=== PATIENT | male | born 1940 | race Caucasian/White ===

== ENCOUNTER → 2019-07-04 08:48 | Outpatient (CLI) | payer OTHER, SELFPAY ==
[2019-07-04 09:42] LABS: Add Manual Diff / Slide Review NO; Alanine Aminotransferase 25 IU/L (<50); Albumin 4.4 g/dL (3.5-5.0); Albumin Globulin Ratio 1.6 (1.0-2.8); Alkaline Phosphatase 55 U/L (38-126); Aspartate Aminotransferase 28 IU/L (17-59); Basophils Absolute Auto 0 /uL (0-100); Basophils Percent Auto 0.5 % (0-2); Blood Urea Nitrogen 28 mg/dL (9-20); Calcium 9.5 mg/dL (8.4-10.2); Carbon Dioxide 31 mmol/L (22-32); Chloride 103 mmol/L (98-107); Cholesterol 191 mg/dL (140-199); Eosinophils Absolute Auto 100 /uL (0-450); Eosinophils Percent Auto 1.6 % (2-4); Estimated Glomerular Filt Rate > 60.0 mL/min (>60); Globulin 2.8 g/dL (1.7-4.1); Glucose 114 mg/dL (80-110); HDL Cholesterol 66 mg/dL (40-60); HEMOLYSIS < 15 (0-50); Hematocrit 43.7 % (41-53); Hemoglobin 15.2 g/dL (13.5-17.5); LDL Cholesterol Calculated 100 mg/dL (<100); Lymphocytes Absolute Auto 1800 /uL (1100-4500); Mean Corpuscular HGB Conc 34.8 % (30-36); Mean Corpuscular Hemoglobin 33.4 PG (26-34); Mean Corpuscular Volume 96.1 fL (80-100); Monocytes Absolute Auto 400 /uL (0-900); Monocytes Percent Auto 8.4 % (3-14); Neutrophils Absolute Auto 2200 /uL (1500-7000); Neutrophils Percent Auto 48.5 % (50-75); Platelet Count 224 X10^3/uL (150-400); Potassium 3.9 mmol/L (3.4-5.1); Red Blood Cell Count 4.55 X10^6/uL (4.5-5.9); Red Cell Distribution Width 13.6 % (11.6-14.8); Sodium 139 mmol/L (137-145); Total Protein 7.2 g/dL (6.3-8.2); Triglycerides 126 mg/dL (35-150); White Blood Cell Count 4.4 X10^3/uL (4.5-11.0)
[2019-07-04 10:30] LABS: Thyroid Stimulating Hormone 0.91 uIU/mL (0.47-4.68)
== END ==
PROVIDERS: PCP Family Medicine; Visit Provider Family Medicine
DX: E78.5 Hyperlipidemia, unspecified (principal); I10 Essential (primary) hypertension
CPT/HCPCS: 36415; 80053; 80061; 84443; 85025

== ENCOUNTER → 2020-10-05 07:56 | Outpatient (CLI) | payer MEDICARE, SELFPAY ==
[2020-10-05 09:01] LABS: Add Manual Diff / Slide Review NO; Basophils Absolute Auto 0 /uL (0-100); Basophils Percent Auto 0.4 % (0-2); Eosinophils Absolute Auto 100 /uL (0-450); Eosinophils Percent Auto 2.6 % (2-4); Hematocrit 43.4 % (41-53); Hemoglobin 14.7 g/dL (13.5-17.5); Lymphocytes Absolute Auto 2100 /uL (1100-4500); Lymphocytes Percent Auto 43.1 % (25-40); Mean Corpuscular HGB Conc 33.9 % (30-36); Mean Corpuscular Hemoglobin 32.6 PG (26-34); Mean Corpuscular Volume 96.3 fL (80-100); Monocytes Absolute Auto 400 /uL (0-900); Neutrophils Absolute Auto 2300 /uL (1500-7000); Neutrophils Percent Auto 45.9 % (50-75); Platelet Count 296 X10^3/uL (150-400); Red Cell Distribution Width 13.3 % (11.6-14.8)
[2020-10-05 09:23] LABS: Alanine Aminotransferase 36 IU/L (<50); Albumin 4.2 g/dL (3.5-5.0); Albumin Globulin Ratio 1.3 (1.0-2.8); Alkaline Phosphatase 59 U/L (38-126); Aspartate Aminotransferase 32 IU/L (17-59); BUN Creatinine Ratio 35.9 (6-22); Bilirubin Total 0.5 mg/dL (0.2-1.3); Blood Urea Nitrogen 28 mg/dL (9-20); Calcium 9.7 mg/dL (8.4-10.2); Carbon Dioxide 31 mmol/L (22-32); Chloride 100 mmol/L (98-107); Cholesterol 200 mg/dL (140-199); Estimated Glomerular Filt Rate > 60.0 mL/min (>60); Globulin 3.2 g/dL (1.7-4.1); Glucose 107 mg/dL (80-110); HDL Cholesterol 63 mg/dL (40-60); HEMOLYSIS < 15 (0-50); LDL Cholesterol Calculated 112 mg/dL (<100); Sodium 137 mmol/L (137-145); Total Protein 7.4 g/dL (6.3-8.2); Triglycerides 124 mg/dL (35-150)
== END ==
PROVIDERS: PCP Family Medicine; Referring Provider Family Medicine; Visit Provider Family Medicine
DX: I10 Essential (primary) hypertension (principal); E78.5 Hyperlipidemia, unspecified; D72.819 Decreased white blood cell count, unspecified
CPT/HCPCS: 36415; 80053; 80061; 85025

== ENCOUNTER 2021-06-30 08:33 | Emergency (ER) | payer MEDICARE, SELFPAY ==
--- NOTE | 2021-06-30 08:49 | ED_ITS ---
HPI - Sepsis General Chief Complaint: Urogenital-Male Evaluation Narrative: 80M former smoker with history of [place], HTN, and hyperlipidemia presents from the [facility] for sepsis workup. He was in his normal state of health until a few days ago when he started having urinary complaints such as frequency and urgency and had some twinges Of pain in his r flank. This morning he started have a fever and shaking chills and felt if anything even short of breath. He denies any runny nose, sore throat or cough. He has no chest pain. He has no nausea or vomiting. He has no abdominal pain or change of bowel habits such as constipation or diarrhea. He denies any numbness, tingling or weakness. He has no pain with bowel movements. He went to the walk-in clinic and after evaluation was sent here for further workup. Review of Systems Review of Systems Narrative: GENERAL: See HPI HEENT: Denies sinus pain, ear pain, sore throat, difficulty swallowing, dizziness. RESPIRATORY: Denies cough, wheezing, hemoptysis, sputum. [place] SOB earlier. CARDIOVASCULAR: Denies chest pain, palpitations, orthopnea, edema, GASTROINTESTINAL: Denies nausea, vomiting, abdominal pain, diarrhea, constipatio n, melena. : See HPI MUSCULOSKELETAL: denies weakness, joint pain, or bony pain SKIN: Denies rash, skin lesions, or other NEUROLOGIC: Denies weakness, headache, numbness, change in speech, confusion, seizures, incoordination. PSYCHIATRIC: No concerning psychosocial issues. 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 Diverticular disease (~2016) Insomnia Obesity (BMI 30-39.9) Obstructive sleep apnea, adult (~2003) Osteoarthritis Rheumatic fever (~1948) Sleep apnea (~2005) Surgical History Anesthesia Cataracts, bilateral (~2017) History of back surgery History of hernia surgery History of knee replacement History of removal of cyst Kidney stones Family History Father Cancer Brother Cancer Diabetes mellitus Sister MDS (myelodysplastic syndrome) Social History marital status: number of children: 3 household members: spouse lives independently: Yes education level: high school occupational status: employed and other Smoking Status: Former smoker alcohol intake: current substance use type: does not use Smoking Status: Former smoker Exam Narrative Exam Narrative: GENERAL: [80] year old patient appears stated age. Well-developed patient, in mild distress. HEAD: Atraumatic. Normocephalic. EYES: Pupils equal round and reactive. Extraocular motions intact. No scleral icterus. No injection or drainage. ENT: Nose without bleeding, purulent drainage. Throat without erythema, tonsillar hypertrophy or exudate. Airway patent. NECK: Trachea midline. Non tender CARDIOVASCULAR:Tachycardic but regular, no murmurs, Crackles or rubs RESPIRATORY: Clear to auscultation. Breath sounds equal bilaterally. No wheezes, rales, or rhonchi. GASTROINTESTINAL: Abdomen soft, non-tender, nondistended. EXTREMITIES: No edema or joint tenderness. BACK: Nontender without deformity or crepitance. No flank tenderness. NEURO: AOx3. SKIN: No rash or erythema of visible areas Initial Vital Signs Initial Vital Signs: Vital Signs Temperature 99.5 F 06/30/21 09:10 Pulse Rate 125 H 06/30/21 09:10 Respiratory Rate 18 06/30/21 09:10 Blood Pressure 155/76 H 06/30/21 09:10 Pulse Oximetry 98 06/30/21 09:10 Course Orders Ordered: ED Orders 06/30/21 09:00 Complete Blood Count AUTO DIFF Stat Comprehensive Metabolic Panel Stat D Dimer Stat Lactate (Lactic Acid) Stat 06/30/21 09:17 Blood Culture Stat 06/30/21 09:40 Urine Culture Stat Urine Microscopic Stat 06/30/21 09:51 COVID19 -Nasal swab/Pre-Proc Stat 06/30/21 09:56 Chest [XR chest 1V] Stat Discontinued Medications Sodium Chloride (Normal Saline 0.9%) 1,000 mls @ 1,000 mls/hr IV BOLUS ONE Stop: 06/30/21 09:40 Last Infusion: 06/30/21 10:27 Dose: 0 mls/hr Documented by: Admin: 06/30/21 09:08 Dose: 1,000 mls/hr Documented by: MARIANNA Ceftriaxone Sodium 2,000 mg/ (Sodium Chloride) 100 mls @ 200 mls/hr IV NOW ONE Stop: 06/30/21 08:45 Last Infusion: 06/30/21 09:43 Dose: 0 mls/hr Documented by: Admin: 06/30/21 09:08 Dose: 200 mls/hr Documented by: MARIANNA Ketorolac Tromethamine (Ketorolac 30 Mg/Ml Vial) 15 mg IV NOW ONE Stop: 06/30/21 08:45 Last Admin: 06/30/21 09:07 Dose: 15 mg Documented by: MARIANNA Vital Signs Vital signs: Vital Signs - 8 hr 06/30/21 09:10 06/30/21 09:30 06/30/21 10:00 Temperature 99.5 F Pulse Rate 115 H 109 H 98 H Respiratory Rate 18 25 H 33 H Blood Pressure 155/76 H Pulse Oximetry 93 94 95 06/30/21 10:02 06/30/21 10:30 Temperature 99.8 F H Pulse Rate 97 H 90 Respiratory Rate 27 H 24 Blood Pressure 127/59 L Pulse Oximetry 94 94 Sepsis Guideline Criteria Treatment Initiated Antibiotics:: IV antimicrobials will be initiated as soon as possible after recognition of sepsis state and within one hour for both sepsis and septic shock. MDM - Sepsis Lab Data Result diagrams: 06/30/21 09:00 06/30/21 09:00 Labs: Lab Results 06/30/21 06/30/21 06/30/21 Range/Units 09:00 09:00 09:00 WBC 12.5 H (4.5-11.0) X10^3/uL RBC 4.57 (4.5-5.9) X10^6/uL Hgb 15.0 (13.5-17.5) g/dL Hct 43.1 (41-53) % MCV 94.4 (80-100) fL MCH 32.8 (26-34) PG MCHC 34.7 (30-36) % RDW 13.4 (11.6-14.8) % Plt Count 196 (150-400) X10^3/uL Neut % (Auto) 89.9 H (50-75) % Lymph % (Auto) 4.7 L (25-40) % Morton % (Auto) 4.6 (3-14) % Eos % (Auto) 0.1 L (2-4) % Baso % (Auto) 0.7 (0-2) % Neut # (Auto) 74383 H (4112-7166) /uL Lymph # (Auto) 600 L (6545-4596) /uL Morton # (Auto) 600 (0-900) /uL Eos # (Auto) 0 (0-450) /uL Baso # (Auto) 100 (0-100) /uL Sodium 132 L (137-145) mmol/L Potassium 3.6 (3.4-5.1) mmol/L Chloride 98 (98-107) mmol/L Carbon Dioxide 27 (22-32) mmol/L BUN 18 (9-20) mg/dL Creatinine 0.74 (0.66-1.25) mg/dL Estimated GFR > 60.0 (>60) mL/min BUN/Creatinine Ratio 24.3 H (6-22) Glucose 138 H (80-110) mg/dL Lactate 1.1 (0.7-2.1) mmol/L Calcium 9.3 (8.4-10.2) mg/dL Total Bilirubin 2.0 H (0.2-1.3) mg/dL AST 34 (17-59) IU/L ALT 25 (<50) IU/L Alkaline Phosphatase 84 (38-126) U/L Total Protein 7.6 (6.3-8.2) g/dL Albumin 4.4 (3.5-5.0) g/dL Globulin 3.2 (1.7-4.1) g/dL Albumin/Globulin Ratio 1.4 (1.0-2.8) Urine RBC (0-5/HPF) Urine WBC (0-5/HPF) Ur Squamous Epith Cells (0-5/HPF) Urine Bacteria (None) Ur Culture Indicated? SARS-CoV-2 (PCR) (Negative) 06/30/21 06/30/21 Range/Units 09:40 09:51 WBC (4.5-11.0) X10^3/uL RBC (4.5-5.9) X10^6/uL Hgb (13.5-17.5) g/dL Hct (41-53) % MCV (80-100) fL MCH (26-34) PG MCHC (30-36) % RDW (11.6-14.8) % Plt Count (150-400) X10^3/uL Neut % (Auto) (50-75) % Lymph % (Auto) (25-40) % Morton % (Auto) (3-14) % Eos % (Auto) (2-4) % Baso % (Auto) (0-2) % Neut # (Auto) (8527-6372) /uL Lymph # (Auto) (1475-4977) /uL Morton # (Auto) (0-900) /uL Eos # (Auto) (0-450) /uL Baso # (Auto) (0-100) /uL Sodium (137-145) mmol/L Potassium (3.4-5.1) mmol/L Chloride (98-107) mmol/L Carbon Dioxide (22-32) mmol/L BUN (9-20) mg/dL Creatinine (0.66-1.25) mg/dL Estimated GFR (>60) mL/min BUN/Creatinine Ratio (6-22) Glucose (80-110) mg/dL Lactate (0.7-2.1) mmol/L Calcium (8.4-10.2) mg/dL Total Bilirubin (0.2-1.3) mg/dL AST (17-59) IU/L ALT (<50) IU/L Alkaline Phosphatase (38-126) U/L Total Protein (6.3-8.2) g/dL Albumin (3.5-5.0) g/dL Globulin (1.7-4.1) g/dL Albumin/Globulin Ratio (1.0-2.8) Urine RBC 0-1/hpf (0-5/HPF) Urine WBC 5-10/hpf H (0-5/HPF) Ur Squamous Epith Cells 1-5 /hpf (0-5/HPF) Urine Bacteria Few (2-10) H (None) Ur Culture Indicated? Specimen cultured SARS-CoV-2 (PCR) Negative (Negative) Urine Dip Bedside Urine Glucose Negative Bedside Urine Bilirubin - Negative Bedside Urine Ketone +/- 5 Urine Specific [place] 1.010 Bedside Urine Occult Blood - Negative Bedside Urine pH 7.0 Bedside Urine Protein - Negative Bedside Urine Urobilinogen - Negative Bedside Urine Nitrite - Negative Bedside Urine Leukocytes +/- 15 Esterase Imaging Data Chest x-ray: Radiologist's Impression: Launch?[address] [place] [address] XRay Report Signed Patient: Mendel Potter MR#: [id number] : 1940 Acct:[id number] Age/Sex: 80 / M Date of Service: 06/30/21 Loc: ED Accession Number: [id number] ?? Procedure: XR chest 1V Ordering Provider: Fabio Douglass D.O. PROCEDURE:? XR CHEST 1V ? INDICATIONS:? fever, tachycardia, SOB ? TECHNIQUE:? One view of the chest was acquired.? ? COMPARISON:? None. ? FINDINGS:? ? Surgical changes and devices:? None.? ? Lungs and pleura:? Lungs are clear.? No pleural effusions or pneumothorax.? ? Mediastinum:? Mediastinal contours appear normal.? Heart size is normal.? ? Bones and chest wall:? No suspicious bony lesions.? Overlying soft tissues appear unremarkable.? ? IMPRESSION:? No acute cardiopulmonary disease process. ? ? Dictated by: Elizabeth Verde MD, PhD on 06/30/2021 at 10:35 ? ? Approved by: Elizabeth Verde MD, PhD on 06/30/2021 at 10:43 ? MDM Narrative Medical decision making narrative: Patient has reassuring history and physical exam. He has very appropriate response to fluids, antipyretics antibiotics, heart rate down to the 80s. Temperature has improved. Labs are very reassuring. Chest x-ray is clear. Urine is being cultured. Urine thought to be primary source. Given episodes of flank pain will treat for Pyelo. Return precautions given and questions answered to his apparent satisfaction Discharge Plan Departure Patient Disposition: Home Clinical Impression: Acute pyelonephritis Instructions: DI for Kidney Infection Activity Restrictions/Additional Instructions: *You have been diagnosed with [urinary infection, likely early pyelonephritis. Your history, physical exam, labs are very reassuring. *What to do: *Please continue to take your regular medications as directed. [x ] New medication prescriptions sent to your pharmacy: [[facility] ] [ ] New medication written as a paper prescription [ ] No new medications given *Please follow up with your primary care provider in 2-3 days, call for an appointment. Let them know you were seen in the Emergency Department and that we ask that you be seen in follow up. We will electronically transmit a record of today's note if your PCP is in our system *Return to Emergency Department if you should have any new, worsening or concerning symptoms, such as [fever greater than 101 F, shaking chills, worsening pain, persistent vomiting or other bothersome symptoms] Prescriptions: New ciprofloxacin HCl [Cipro] 500 mg tablet 500 mg PO BID Qty: 20 0RF No Action losartan 50 mg tablet 50 mg PO DAILY Qty: 90 3RF lovastatin 20 mg tablet 20 mg PO DAILY Qty: 90 3RF triamterene-hydrochlorothiazid 37.5-25 mg tablet 1 tab PO QDAY Qty: 90 3RF celecoxib [Celebrex] 200 mg capsule 200 mg PO QDAY Qty: 100 3RF zolpidem 5 mg tablet 5 mg PO BEDTIME Qty: 90 0RF psyllium husk [Fiber (psyllium husk)] 0.4 gram capsule 0.4 gram PO DAILY Qty: 90 0RF (DME) ResMEd AirSense 10 See Rx Instructions .Route .MEDSUPPLY 0RF Rx Instructions: CPAP Min: 6 Max: 10 DME: [facility] Referrals: Jessy Mcgovern DO [Primary Care Provider] -
[2021-06-30] MEDS: KETOROLAC 30 MG/ML VIAL 15 MG IV (09:07)
[2021-06-30] MEDS: SODIUM CHLORIDE 0.9% 1,000 ML 1000 ML IV (09:08)
[2021-06-30] MEDS: cefTRIAXone 2,000 MG in SODIUM CHLORIDE 0.9% 100 ML 200 ML IV (09:08)
[2021-06-30 09:10] VITALS: BP 155/76; PULSE 115; PULSE 125; RESP 18; TEMP 37.5; O2SAT 93; O2SAT 98
--- NOTE | 2021-06-30 09:11 | PC.NURSE ---
pt also having fever/chills with right lower back pain
[2021-06-30 09:15] LABS: Add Manual Diff / Slide Review NO; Basophils Absolute Auto 100 /uL (0-100); Basophils Percent Auto 0.7 % (0-2); Eosinophils Absolute Auto 0 /uL (0-450); Eosinophils Percent Auto 0.1 % (2-4); Hematocrit 43.1 % (41-53); Lymphocytes Absolute Auto 600 /uL (1100-4500); Lymphocytes Percent Auto 4.7 % (25-40); Mean Corpuscular HGB Conc 34.7 % (30-36); Mean Corpuscular Hemoglobin 32.8 PG (26-34); Mean Corpuscular Volume 94.4 fL (80-100); Monocytes Absolute Auto 600 /uL (0-900); Monocytes Percent Auto 4.6 % (3-14); Neutrophils Absolute Auto 11200 /uL (1500-7000); Neutrophils Percent Auto 89.9 % (50-75); Platelet Count 196 X10^3/uL (150-400); Red Blood Cell Count 4.57 X10^6/uL (4.5-5.9); Red Cell Distribution Width 13.4 % (11.6-14.8); White Blood Cell Count 12.5 X10^3/uL (4.5-11.0)
[2021-06-30 09:25] LABS: Lactate (Lactic Acid) 1.1 mmol/L (0.7-2.1)
[2021-06-30 09:26] LABS: Alanine Aminotransferase 25 IU/L (<50); Albumin 4.4 g/dL (3.5-5.0); Albumin Globulin Ratio 1.4 (1.0-2.8); Alkaline Phosphatase 84 U/L (38-126); Aspartate Aminotransferase 34 IU/L (17-59); BUN Creatinine Ratio 24.3 (6-22); Blood Urea Nitrogen 18 mg/dL (9-20); Calcium 9.3 mg/dL (8.4-10.2); Carbon Dioxide 27 mmol/L (22-32); Chloride 98 mmol/L (98-107); Estimated Glomerular Filt Rate > 60.0 mL/min (>60); Globulin 3.2 g/dL (1.7-4.1); Glucose 138 mg/dL (80-110); HEMOLYSIS < 15 (0-50); Potassium 3.6 mmol/L (3.4-5.1); Sodium 132 mmol/L (137-145); Total Protein 7.6 g/dL (6.3-8.2)
[2021-06-30 09:30] VITALS: PULSE 109; RESP 25; O2SAT 94
--- NOTE | 2021-06-30 09:56 | DI.RAD.S_ITS ---
PROCEDURE: XR CHEST 1V INDICATIONS: fever, tachycardia, SOB TECHNIQUE: One view of the chest was acquired. COMPARISON: None. FINDINGS: Surgical changes and devices: None. Lungs and pleura: Lungs are clear. No pleural effusions or pneumothorax. Mediastinum: Mediastinal contours appear normal. Heart size is normal. Bones and chest wall: No suspicious bony lesions. Overlying soft tissues appear unremarkable. IMPRESSION: No acute cardiopulmonary disease process. Dictated by: Elizabeth Verde MD, PhD on 06/30/2021 at 10:35 Approved by: Elizabeth Verde MD, PhD on 06/30/2021 at 10:43
[2021-06-30 10:00] VITALS: PULSE 98; RESP 33; O2SAT 95
[2021-06-30 10:02] VITALS: BP 127/59; PULSE 97; RESP 27; TEMP 37.7; O2SAT 94
[2021-06-30 10:20] LABS: COVID19 -Nasal RAPID Negative (Negative)
[2021-06-30 10:26] LABS: Bacteria Urine Few (2-10); Culture Indicated Urine Specimen Cultured; RBC Urine 0-1/HPF (0-5/HPF); Squamous Epithelial Cell Urine 1-5 /HPF (0-5/HPF); WBC Urine 5-10/HPF (0-5/HPF)
[2021-06-30 10:30] VITALS: PULSE 90; RESP 24; O2SAT 94
[2021-06-30 11:05] LABS: D Dimer 323 ng/mL (<230)
[2021-07-01 03:12] LABS: Acinetobacter baumannii Not Detected (Not Detect); Candida albicans Not Detected (Not Detect); Candida glabrata Not Detected (Not Detect); Candida krusei Not Detected (Not Detect); Candida parapsilosis Not Detected (Not Detect); Candida tropicalis Not Detected (Not Detect); E. coli Detected (Not Detect); Enterobacter cloacae complex Not Detected (Not Detect); Enterobacteriaceae species Detected (Not Detect); Enterococcus species Not Detected (Not Detect); Haemophilus influenzae Not Detected (Not Detect); KPC (carbapenem-resist gene) Not Detected (Not Detect); Listeria monocytogenes Not Detected (Not Detect); Neisseria meningitidis Not Detected (Not Detect); Proteus species Not Detected (Not Detect); Pseudomonas aeruginosa Not Detected (Not Detect); Serratia marcescens Not Detected (Not Detect); Staphylococcus species Not Detected (Not Detect); Streptococcus agalactiae (Gr B Not Detected (Not Detect); Streptococcus pneumonia Not Detected (Not Detect); Streptococcus pyogenes (Gr A) Not Detected (Not Detect); Streptococcus species Not Detected (Not Detect)
== END 2021-06-30 11:10 | disposition home or self-care (01) ==
PROVIDERS: Emergency Provider Emergency Medicine; PCP Family Medicine
DX: N10 Acute pyelonephritis (principal); B96.20 Unspecified Escherichia coli [E. coli] as the cause of diseases classified elsewhere; R00.0 Tachycardia, unspecified; Z20.822 Contact with and (suspected) exposure to COVID-19
CPT/HCPCS: 36415; 71045; 80053; 81003; 81015; 83605; 85025; 85379; 87040; 87086; 87150; 87186; 87205; 87635; 96361; 96365; 96375; 99284; C9803; J0696; J1885

== ENCOUNTER 2021-07-01 09:16 | Observation (INO) | payer MEDICARE, SELFPAY ==
[2021-07-01] VITALS (15 sets, daily range): BP systolic 112–154; BP diastolic 58–85; PULSE 80–186; RESP 15–20; TEMP 36.8–37.7; O2SAT 93–97; BMI 34.0; BMI 33.9
--- NOTE | 2021-07-01 09:24 | ED_ITS ---
HPI - General Adult General Chief complaint: Urogenital-Male Stated complaint: needs more antibiotics Time Seen by Provider: 07/01/21 09:24 Source: patient Mode of arrival: Ambulatory Limitations: no limitations History of Present Illness HPI narrative: This is a 80-year-old male who comes to the emergency department after being request to return because he a positive blood culture for E coli and Enterobacter. Patient was seen yesterday. He had shaking chills, right flank pain and dysuria and frequency. He found to have pyelonephritis given a dose of IV Rocephin in the department has taken 1 dose of oral Cipro this morning. Patient states has felt significantly better. He has not had any other fevers o r chills. He denies any cold, cough or congestion. No chest pain or shortness of breath. No nausea or vomiting. His right flank pain has resolved although he did take ibuprofen this morning. He is not having any dysuria or urgency. He has not any diarrhea constipation. It was noted patient was quite tachycardic in the 180 range upon arrival. He does not have any sensation that his heart rate is elevated and slowly improved to the 1 teen range while resting in the room. Patient has a history of hypertension, dyslipidemia and takes Celebrex daily. He has obstructive sleep apnea uses CPAP. He denies any prior surgeries. No cardiac history no stents. He denies allergies to medications. His primary care physician is Dr. Mcgovern. Related Data Home Medications Medication Instructions Recorded Confirmed ResMEd AirSense 10 06/15/21 07/01/21 Previous Rx's Medication Instructions Recorded psyllium husk 0.4 gram capsule 0.4 gram PO DAILY #90 cap 07/19/18 (Fiber (psyllium husk)) losartan 50 mg tablet 50 mg PO DAILY #90 tab 09/30/20 lovastatin 20 mg tablet 20 mg PO DAILY #90 tab 09/30/20 triamterene 37.5 1 tab PO QDAY #90 tab 09/30/20 mg-hydrochlorothiazide 25 mg tablet celecoxib 200 mg capsule (Celebrex) 200 mg PO QDAY #100 cap 04/25/21 zolpidem 5 mg tablet 5 mg PO BEDTIME #90 tab 06/06/21 ciprofloxacin HCl 500 mg tablet 500 mg PO BID #20 tab 06/30/21 (Cipro) Allergies Allergy/AdvReac Type Severity Reaction Status Date / Time No Known Allergies Allergy Uncoded 06/15/21 14:26 Review of Systems Review of Systems ROS Unobtainable: All systems reviewed & are unremarkable except as noted in HPI and below 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 Diverticular disease (~2015) Insomnia Obesity (BMI 30-39.9) Obstructive sleep apnea, adult (~2003) Osteoarthritis Rheumatic fever (~1948) Sleep apnea (~2004) Surgical History Anesthesia Cataracts, bilateral (~2017) History of back surgery History of hernia surgery History of knee replacement History of removal of cyst Kidney stones Family History Father Cancer Brother Cancer Diabetes mellitus Sister MDS (myelodysplastic syndrome) Social History marital status: number of children: 3 household members: spouse lives independently: Yes education level: high school occupational status: employed and other Smoking Status: Former smoker alcohol intake: current substance use type: does not use Smoking Status: Former smoker alcohol intake frequency: 0-2 drinks per day Substance Use Type: does not use Exam Narrative Exam Narrative: GENERAL: Alert and oriented x three, female in mild distress. HEENT: Head normocephalic, atraumatic, EOMI, pupils reactive, face symmetric, moist mucous membranes NECK: Supple, full range of motion CARDIOVASCULAR: Tachycardic but Regular rate and rhythm without murmurs, rubs or gallops. No JVD. No swelling bilateral lower extremities. RESPIRATORY: Breath sounds equal bilaterally, no wheezes rales or rhonchi. ABDOMEN: Soft, nontender. Normoactive bowel sounds all 4 quadrants. No guarding or rebound, rigidity, no mass : No CVA tenderness bilaterally. EXTREMITIES: Normal range of motion, no clubbing or edema. Neurovascularly intact NEUROLOGICAL: Cranial nerves II through XII grossly intact. Moving all extremities SKIN: Warm, dry, no petechiae, no rashes or lesions. Initial Vital Signs Initial Vital Signs: Vital Signs Temperature 98.2 F 07/01/21 09:18 Pulse Rate 186 H 07/01/21 09:18 Respiratory Rate 18 07/01/21 09:18 Blood Pressure 119/85 07/01/21 09:18 Pulse Oximetry 97 07/01/21 09:18 Course Orders Ordered: ED Orders 07/01/21 09:25 Blood Culture Stat Complete Blood Count AUTO DIFF Stat Comprehensive Metabolic Panel Stat Lactate (Lactic Acid) Stat NT-proBNP (BNP-Adult 18+) Stat Procalcitonin Stat Troponin & CK Cardiac Panel Stat Urinalysis and Microscopic Stat 07/01/21 09:31 CT kidney ureter bladder (KUB) Stat Chest [XR chest 1V] Stat EKG-12 Lead Stat 07/01/21 09:50 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) Stat Acetaminophen (Acetaminophen 325 Mg Tablet) 650 mg PO Q6HR PRN PRN Reason: Fever/Mild Pain (1-3) Last Admin: 07/01/21 17:26 Dose: 650 mg Documented by: KALYN Atorvastatin Calcium (Atorvastatin 20 Mg Tablet) 10 mg PO BEDTIME CARA Celecoxib (Celecoxib 200 Mg Capsule) 200 mg PO DAILY CARA Docusate Sodium (Docusate 100 Mg Capsule) 100 mg PO BID CARA Enoxaparin Sodium (Enoxaparin 40 Mg/0.4 Ml Syringe) 40 mg SUBCUT DAILY [facility] Sodium Chloride (Normal Saline 0.9%) 1,000 mls @ 100 mls/hr IV CONT CARA Last Admin: 07/01/21 12:12 Dose: 100 mls/hr Documented by: MIAH Losartan Potassium (Losartan 50 Mg Tablet) 50 mg PO DAILY CARA Magnesium Hydroxide (Magnesium Hydroxide 30 Ml Udc) 30 ml PO DAILY PRN PRN Reason: Constipation Ondansetron HCl (Ondansetron 4 Mg/2 Ml Inj) 4 mg IV Q8HR PRN PRN Reason: Nausea And Vomiting Triamterene/Hydrochlorothiazide (Triamterene/Hctz 37.5/25 Capsule) 1 cap PO DAILY CARA Zolpidem Tartrate (Zolpidem 5 Mg Tablet) 5 mg PO BEDTIME CARA Discontinued Medications Ceftriaxone Sodium 2,000 mg/ (Sodium Chloride) 100 mls @ 200 mls/hr IV NOW ONE Stop: 07/01/21 09:41 Last Infusion: 07/01/21 10:31 Dose: 0 mls/hr Documented by: Admin: 07/01/21 09:53 Dose: 200 mls/hr Documented by: MONCHO Sodium Chloride (Normal Saline 0.9%) 1,000 mls @ 1,000 mls/hr IV BOLUS PRN PRN Reason: Fluid replacement Last Infusion: 07/01/21 11:17 Dose: 0 mls/hr Documented by: Admin: 07/01/21 10:32 Dose: 1,000 mls/hr Documented by: MONCHO Metronidazole (Flagyl) 500 mg in 100 mls @ 100 mls/hr IV NOW ONE Stop: 07/01/21 11:31 Last Infusion: 07/01/21 11:17 Dose: 0 mls/hr Documented by: Admin: 07/01/21 10:44 Dose: 100 mls/hr Documented by: MONCHO Ketorolac Tromethamine (Ketorolac 30 Mg/Ml Vial) 30 mg IV Q6HR PRN PRN Reason: Pain, Severe (7-10) Stop: 07/06/21 11:46 Consultations Consultation #1: Dr. Huerta, is hospitalist accepts for admission. Patient has positive blood culture for E coli and Enterobacter with positive PCR and Gram stain. His urine culture from yesterday is negative. CT abdomen pelvis was obtained which shows diverticulitis which may be the source of his infection. He was covered with Rocephin and Flagyl. He was tachycardic but was not given the full 30 cc/kilos bolus as his heart rate was improving significantly without a large intervention of fluids and he had a L yesterday and is likely to become fluid overloaded. Patient's procalcitonin is elevated but lactate is reassuring and cultures were repeated today. Vital Signs Vital signs: Vital Signs - 8 hr 07/01/21 10:13 07/01/21 10:30 Pulse Rate 104 H 96 H Respiratory Rate 15 15 Blood Pressure 145/69 H 112/58 L Pulse Oximetry 97 94 Medical Decision Making Lab Data Result diagrams: 07/01/21 09:25 07/01/21 09:25 Labs: Lab Results 07/01/21 07/01/21 07/01/21 Range/Units 09:25 09:25 09:25 WBC 7.8 (4.5-11.0) X10^3/uL RBC 4.56 (4.5-5.9) X10^6/uL Hgb 15.0 (13.5-17.5) g/dL Hct 43.2 (41-53) % MCV 94.8 (80-100) fL MCH 33.0 (26-34) PG MCHC 34.8 (30-36) % RDW 13.1 (11.6-14.8) % Plt Count 193 (150-400) X10^3/uL Neut % (Auto) 79.5 H (50-75) % Lymph % (Auto) 9.3 L (25-40) % [place] % (Auto) 10.3 (3-14) % Eos % (Auto) 0.3 L (2-4) % Baso % (Auto) 0.6 (0-2) % Neut # (Auto) 6200 (2489-6228) /uL Lymph # (Auto) 700 L (3090-9797) /uL [place] # (Auto) 800 (0-900) /uL Eos # (Auto) 0 (0-450) /uL Baso # (Auto) 0 (0-100) /uL Sodium 134 L (137-145) mmol/L Potassium 3.7 (3.4-5.1) mmol/L Chloride 102 (98-107) mmol/L Carbon Dioxide 27 (22-32) mmol/L BUN 17 (9-20) mg/dL Creatinine 0.79 (0.66-1.25) mg/dL Estimated GFR > 60.0 (>60) mL/min BUN/Creatinine Ratio 21.5 (6-22) Glucose 146 H (80-110) mg/dL Lactate 1.2 (0.7-2.1) mmol/L Calcium 9.2 (8.4-10.2) mg/dL Total Bilirubin 1.2 (0.2-1.3) mg/dL AST 42 (17-59) IU/L ALT 37 (<50) IU/L Alkaline Phosphatase 83 (38-126) U/L Total Creatine Kinase 92 (55-170) U/L CK-MB (CK-2) TNP CK-MB (CK-2) Rel Index TNP Troponin I 0.015 (0.01-0.034) ng/mL NT-Pro-B Natriuret Pep 226 (<450) pg/mL Total Protein 7.5 (6.3-8.2) g/dL Albumin 4.1 (3.5-5.0) g/dL Globulin 3.4 (1.7-4.1) g/dL Albumin/Globulin Ratio 1.2 (1.0-2.8) Procalcitonin 1.37 H (<0.5) ng/mL Urine Color Urine Appearance Urine pH (4.5-8.0) Ur Specific [place] (1.000-1.035) Urine Protein (Negative) Urine Glucose (UA) (Negative) g/dL Urine Ketones (NEGATIVE) Urine Occult Blood (Negative) Urine Nitrate (Negative) Urine Bilirubin (NEGATIVE) Urine Urobilinogen (0.2) E.U./dL Ur Leukocyte Esterase (NEGATIVE) Urine RBC (0-5/HPF) Urine WBC (0-5/HPF) Ur Transition Epith Cell (0-5/HPF) Urine Bacteria (None) Ur Culture Indicated? SARS-CoV-2 (PCR) (Negative) 07/01/21 07/01/21 Range/Units 09:25 09:50 WBC (4.5-11.0) X10^3/uL RBC (4.5-5.9) X10^6/uL Hgb (13.5-17.5) g/dL Hct (41-53) % MCV (80-100) fL MCH (26-34) PG MCHC (30-36) % RDW (11.6-14.8) % Plt Count (150-400) X10^3/uL Neut % (Auto) (50-75) % Lymph % (Auto) (25-40) % [place] % (Auto) (3-14) % Eos % (Auto) (2-4) % Baso % (Auto) (0-2) % Neut # (Auto) (7910-4123) /uL Lymph # (Auto) (0167-0915) /uL [place] # (Auto) (0-900) /uL Eos # (Auto) (0-450) /uL Baso # (Auto) (0-100) /uL Sodium (137-145) mmol/L Potassium (3.4-5.1) mmol/L Chloride (98-107) mmol/L Carbon Dioxide (22-32) mmol/L BUN (9-20) mg/dL Creatinine (0.66-1.25) mg/dL Estimated GFR (>60) mL/min BUN/Creatinine Ratio (6-22) Glucose (80-110) mg/dL Lactate (0.7-2.1) mmol/L Calcium (8.4-10.2) mg/dL Total Bilirubin (0.2-1.3) mg/dL AST (17-59) IU/L ALT (<50) IU/L Alkaline Phosphatase (38-126) U/L Total Creatine Kinase (55-170) U/L CK-MB (CK-2) CK-MB (CK-2) Rel Index Troponin I (0.01-0.034) ng/mL NT-Pro-B Natriuret Pep (<450) pg/mL Total Protein (6.3-8.2) g/dL Albumin (3.5-5.0) g/dL Globulin (1.7-4.1) g/dL Albumin/Globulin Ratio (1.0-2.8) Procalcitonin (<0.5) ng/mL Urine Color Yellow Urine Appearance Clear Urine pH 6.5 (4.5-8.0) Ur Specific [place] 1.015 (1.000-1.035) Urine Protein Negative (Negative) Urine Glucose (UA) Negative (Negative) g/dL Urine Ketones Trace H (NEGATIVE) Urine Occult Blood Negative (Negative) Urine Nitrate Negative (Negative) Urine Bilirubin Negative (NEGATIVE) Urine Urobilinogen 0.2 (0.2) E.U./dL Ur Leukocyte Esterase Negative (NEGATIVE) Urine RBC None seen (0-5/HPF) Urine WBC 1-5/hpf (0-5/HPF) Ur Transition Epith Cell 0-1/hpf (0-5/HPF) Urine Bacteria Occasional (0-1) (None) Ur Culture Indicated? Culture not indicate SARS-CoV-2 (PCR) Negative (Negative) Imaging Data Chest x-ray: Radiologist's Impression: Mendel Potter??80??M??1940 ? Allergy/Adv: [No Known Allergies] Close Chest X-Ray (Signed) Elvis Luevano - 07/01/21 Abdomen/Pelvis CT (Signed) Elvis Luevano - 07/01/21 Chest X-Ray (Signed) Elizabeth Verde - 06/30/21 Launch?[address] [address] XRay Report Signed Patient: Mendel Potter MR#: [id number] : 1940 Acct:[id number] Age/Sex: 80 / M Date of Service: 07/01/21 Loc: ED Accession Number: [id number] ?? Procedure: XR chest 1V Ordering Provider: Rachelle Dent D.O. PROCEDURE:? XR CHEST 1V ? INDICATIONS:? bacteremia ? TECHNIQUE:? One view of the chest was acquired.? ? COMPARISON:? [facility], , XR CHEST 1V, 06/30/2021, 10:21. ? FINDINGS:? ? Surgical changes and devices:? None.? ? Lungs and pleura:? Lungs are clear.? No pleural effusions or pneumothorax.? ? Mediastinum:? Mediastinal contours appear normal.? Heart size is normal.? ? Bones and chest wall:? No suspicious bony lesions.? Overlying soft tissues appear unremarkable.? ? IMPRESSION:? No acute cardiopulmonary abnormality ? ? Dictated by: Elvis Luevano M.D. on 07/01/2021 at 9:21 ? ? Approved by: Elvis Luevano M.D. on 07/01/2021 at 9:22?? CT scan - abdomen/pelvis: Radiologist's Impression: [place] [address] CT Scan Report Signed Patient: Mendel oPtter MR#: [id number] : 1940 Acct:[id number] Age/Sex: 80 / M Date of Service: 07/01/21 Loc: ED Accession Number: [id number] ?? Procedure: CT kidney ureter bladder (KUB) Ordering Provider: Rachelle Dent D.O. PROCEDURE:? CT KIDNEY URETER BLADDER (KUB) ? INDICATIONS:? pyelonephritis, bacteremia ? TECHNIQUE:? Axial sections were acquired from the lung bases to the pubic symphysis.? Coronal and sagittal reformats were performed.? For radiation dose reduction, the following was used: ?automated exposure control, adjustment of mA and/or kV according to patient size.? ? COMPARISON:? None. ? FINDINGS: Image quality:? Excellent.? ? Lung bases:? Lung bases are clear.? Heart size is normal. ? Solid organs:? Liver: The liver has no mass or intrahepatic biliary ductal dilatation. The portal vein and hepatic veins are patent. Biliary:? Cholelithiasis without evidence of cholecystitis. Pancreas: The pancreas has no mass or ductal dilatation. There is no surrounding inflammation. Spleen: Normal size. There are no masses. Adrenals: No hypertrophy or nodules. Kidneys: No obstructive calculus or hydronephrosis.? Punctate calcifications in both kidneys are nonobstructive.? No solid mass. No cystic mass. ? Peritoneum and bowel:? The distal esophagus and stomach are normal.? The small bowel has a normal caliber and appearance. The terminal ileum is normal. The large bowel has severe diverticulosis with a segment of mid sigmoid colon which has surrounding inflammation consistent with mild acute diverticulitis.? No evidence of perforation or abscess..? The appendix is not definitively visualized; however there are no secondary findings to suggest acute appendicitis.? No free fluid or air.? ? Nodes and vessels:? No retroperitoneal or mesenteric adenopathy.? The aorta has atherosclerotic calcifications with no aneurysmal dilatation. ? Miscellaneous:? A fat containing spigelian hernia is noted on the right. ? PELVIS:? Genitourinary:? The bladder has no wall thickening or mass. No bladder calcifications. ? Bones:? Degenerative changes with no focal abnormality.? No vertebral body compression fractures.? ? IMPRESSION:? Diverticulosis with a segment of mid sigmoid colon having surrounding mild inflammation consistent with mild acute diverticulitis.? No evidence of perforation or abscess. ? ? Dictated by: Elvis Luevano M.D. on 07/01/2021 at 9:22 ? ? Approved by: Elvis Luevano M.D. on 07/01/2021 at 9:28?? ECG Data Attestation: I personally reviewed and interpreted this ECG as follows: Prior ECG tracings: not available for review Interpretation: Sinus tachycardia rate of 107 DC 184 QRS 88 QTC [address]. No acute ST elevation depression noted. Patient has no priors for comparison. MDM Narrative Medical decision making narrative: This is a 80-year-old male who comes to the emergency department with shaking chills, pyelonephritis diagnosed yesterday started on ciprofloxacin and had a dose of Rocephin while in the emergency department. Patient states he feels significantly better today but had positive blood cultures and Gram stain that showed Enterobacter in E coli on his PCR. On arrival patient's heart rate was 180 sinus tach but improved significantly while he was resting. He was given, Rocephin and Flagyl followed after he had CT abdomen pelvis which does show some diverticulitis which may be the source of his infection. Urine today is negative, so far his urine culture has been negative from yesterday. Patient was admitted by the hospitalist. Discharge Plan Departure Patient Disposition: Admitted as Observation Clinical Impression: Bacteremia, Diverticulitis Admit Date/Time: 07/01/21 10:40 Admit Provider: Liborio Huerta
--- NOTE | 2021-07-01 09:31 | DI.CT.S_ITS ---
PROCEDURE: CT KIDNEY URETER BLADDER (KUB) INDICATIONS: pyelonephritis, bacteremia TECHNIQUE: Axial sections were acquired from the lung bases to the pubic symphysis. Coronal and sagittal reformats were performed. For radiation dose reduction, the following was used: automated exposure control, adjustment of mA and/or kV according to patient size. COMPARISON: None. FINDINGS: Image quality: Excellent. Lung bases: Lung bases are clear. Heart size is normal. Solid organs: Liver: The liver has no mass or intrahepatic biliary ductal dilatation. The portal vein and hepatic veins are patent. Biliary: Cholelithiasis without evidence of cholecystitis. Pancreas: The pancreas has no mass or ductal dilatation. There is no surrounding inflammation. Spleen: Normal size. There are no masses. Adrenals: No hypertrophy or nodules. Kidneys: No obstructive calculus or hydronephrosis. Punctate calcifications in both kidneys are nonobstructive. No solid mass. No cystic mass. Peritoneum and bowel: The distal esophagus and stomach are normal. The small bowel has a normal caliber and appearance. The terminal ileum is normal. The large bowel has severe diverticulosis with a segment of mid sigmoid colon which has surrounding inflammation consistent with mild acute diverticulitis. No evidence of perforation or abscess.. The appendix is not definitively visualized; however there are no secondary findings to suggest acute appendicitis. No free fluid or air. Nodes and vessels: No retroperitoneal or mesenteric adenopathy. The aorta has atherosclerotic calcifications with no aneurysmal dilatation. Miscellaneous: A fat containing spigelian hernia is noted on the right. PELVIS: Genitourinary: The bladder has no wall thickening or mass. No bladder calcifications. Bones: Degenerative changes with no focal abnormality. No vertebral body compression fractures. IMPRESSION: Diverticulosis with a segment of mid sigmoid colon having surrounding mild inflammation consistent with mild acute diverticulitis. No evidence of perforation or abscess. Dictated by: Elvis Luevano M.D. on 07/01/2021 at 9:22 Approved by: Elvis Luevano M.D. on 07/01/2021 at 9:28
--- NOTE | 2021-07-01 09:31 | DI.RAD.S_ITS ---
PROCEDURE: XR CHEST 1V INDICATIONS: bacteremia TECHNIQUE: One view of the chest was acquired. COMPARISON: [facility], CR, XR CHEST 1V, 06/30/2021, 10:21. FINDINGS: Surgical changes and devices: None. Lungs and pleura: Lungs are clear. No pleural effusions or pneumothorax. Mediastinum: Mediastinal contours appear normal. Heart size is normal. Bones and chest wall: No suspicious bony lesions. Overlying soft tissues appear unremarkable. IMPRESSION: No acute cardiopulmonary abnormality Dictated by: Elvis Luevano M.D. on 07/01/2021 at 9:21 Approved by: Elvis Luevano M.D. on 07/01/2021 at 9:22
[2021-07-01 09:46] LABS: Add Manual Diff / Slide Review NO; Basophils Absolute Auto 0 /uL (0-100); Basophils Percent Auto 0.6 % (0-2); Eosinophils Absolute Auto 0 /uL (0-450); Eosinophils Percent Auto 0.3 % (2-4); Hematocrit 43.2 % (41-53); Lymphocytes Absolute Auto 700 /uL (1100-4500); Lymphocytes Percent Auto 9.3 % (25-40); Mean Corpuscular HGB Conc 34.8 % (30-36); Mean Corpuscular Volume 94.8 fL (80-100); Monocytes Absolute Auto 800 /uL (0-900); Monocytes Percent Auto 10.3 % (3-14); Neutrophils Absolute Auto 6200 /uL (1500-7000); Neutrophils Percent Auto 79.5 % (50-75); Platelet Count 193 X10^3/uL (150-400); Red Blood Cell Count 4.56 X10^6/uL (4.5-5.9); Red Cell Distribution Width 13.1 % (11.6-14.8); White Blood Cell Count 7.8 X10^3/uL (4.5-11.0)
[2021-07-01 09:47] LABS: Appearance Urine UA CLEAR; Bilirubin Urine UA NEGATIVE (NEGATIVE); Color Urine UA YELLOW; Glucose Urine UA NEGATIVE (Negative); Ketones Urine UA TRACE (NEGATIVE); Leukocyte Esterase Urine UA NEGATIVE (NEGATIVE); Nitrite Urine UA NEGATIVE (Negative); Occult Blood Urine UA NEGATIVE (Negative); Protein Urine UA NEGATIVE (Negative); Specific Gravity Urine UA 1.015 (1.000-1.035); Urobilinogen Urine UA 0.2 E.U./dL (0.2); pH Urine UA 6.5 (4.5-8.0)
[2021-07-01] MEDS: cefTRIAXone 2,000 MG in SODIUM CHLORIDE 0.9% 100 ML 200 ML IV (09:53)
[2021-07-01 09:55] LABS: Alanine Aminotransferase 37 IU/L (<50); Albumin 4.1 g/dL (3.5-5.0); Albumin Globulin Ratio 1.2 (1.0-2.8); Alkaline Phosphatase 83 U/L (38-126); Aspartate Aminotransferase 42 IU/L (17-59); BUN Creatinine Ratio 21.5 (6-22); Bilirubin Total 1.2 mg/dL (0.2-1.3); Blood Urea Nitrogen 17 mg/dL (9-20); Calcium 9.2 mg/dL (8.4-10.2); Carbon Dioxide 27 mmol/L (22-32); Chloride 102 mmol/L (98-107); Creatine Kinase 92 U/L (55-170); Estimated Glomerular Filt Rate > 60.0 mL/min (>60); Globulin 3.4 g/dL (1.7-4.1); Glucose 146 mg/dL (80-110); HEMOLYSIS < 15 (0-50); Lactate (Lactic Acid) 1.2 mmol/L (0.7-2.1); Potassium 3.7 mmol/L (3.4-5.1); Sodium 134 mmol/L (137-145); Total Protein 7.5 g/dL (6.3-8.2)
[2021-07-01 10:00] LABS: RBC Urine None Seen (0-5/HPF); WBC Urine 1-5/HPF (0-5/HPF)
[2021-07-01 10:01] LABS: Bacteria Urine Occasional (0-1); Transitional Epi Cells Urine 0-1/HPF (0-5/HPF)
[2021-07-01 10:07] LABS: NT-proBNP (BNP-Adult 18+) 226 pg/mL (<450); Troponin I 0.015 ng/mL (0.01-0.034)
[2021-07-01 10:12] LABS: Procalcitonin 1.37 ng/mL (<0.5)
[2021-07-01] MEDS: SODIUM CHLORIDE 0.9% 1,000 ML 1000 ML IV (10:32)
[2021-07-01] MEDS: metroNIDAZOLE 500 MG/100 ML PIGGYBACK 100 MG IV (10:44)
[2021-07-01 10:52] LABS: COVID19 - ADMIT (NP swab/PCR) Negative (Negative)
[2021-07-01] MEDS: SODIUM CHLORIDE 0.9% 1,000 ML 100 ML IV ×2 (12:12→21:34)
--- NOTE | 2021-07-01 13:01 | P.HP_ITS ---
History of Present Illness History of Present Illness Date Patient Seen: 07/01/21 Time Patient Seen: 12:30 Date of Onset of Symptoms: 06/29/21 Chief complaint: needs more antibiotics Narrative: Patient is 80-year-old male with history of hypertension, CASPER presented back to the emergency department due to bacteremia. He presented initially on June 29 with complaints of shaking chills, fever and urinary urgency and discomfort. He was given dose of Rocephin and discharged on oral ciprofloxacin. He reports feeling better with improvement of rigors and urinary discomfort. However he was called back to the ED because blood cultures are growing E coli while urine cultures remain negative. He has not noticed abdominal pain. He was noted to have impressive tachycardia with heart rate 180 in sinus rhythm when he 1st presented to the ED today. He was not hypotensive, hypoxic or febrile. His abdomen and pelvic CT from this 2nd ER visit showed findings consistent with mild diverticulitis in the sigmoid colon without perforation. Chest x-ray is normal. He had mild leukocytosis on initial ER visit which resolved. His lactate is normal. 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 Diverticular disease (~2016) Insomnia Obesity (BMI 30-39.9) Obstructive sleep apnea, adult (~2003) Osteoarthritis Rheumatic fever (~1948) Sleep apnea (~2005) Surgical History Anesthesia Cataracts, bilateral (~2017) History of back surgery History of hernia surgery History of knee replacement History of removal of cyst Kidney stones Family & Social History Family History Father Cancer Brother Cancer Diabetes mellitus Sister MDS (myelodysplastic syndrome) Social History: household members spouse Prior Living Arrangements Apartment/Condo lives independently Yes Safety & Behavioral: Feels Safe in Current Yes Environment Been Physically Hurt or No Threatened By a Person Suicidal Ideation Description None Suicide Plan Description No Plan Tobacco & Substance use: Tobacco type cigarettes Smoking Status Former smoker alcohol intake current alcohol intake frequency 0-2 drinks per day Substance Use Type does not use Meds Home Medications and Allergies Home Medications Medication Instructions Recorded Confirmed Type psyllium husk 0.4 gram capsule 0.4 gram PO DAILY #90 cap 07/19/18 07/01/21 Rx (Fiber (psyllium husk)) losartan 50 mg tablet 50 mg PO DAILY #90 tab 09/30/20 07/01/21 Rx lovastatin 20 mg tablet 20 mg PO DAILY #90 tab 09/30/20 07/01/21 Rx triamterene 37.5 1 tab PO QDAY #90 tab 09/30/20 07/01/21 Rx mg-hydrochlorothiazide 25 mg tablet celecoxib 200 mg capsule (Celebrex) 200 mg PO QDAY #100 cap 04/25/21 07/01/21 Rx zolpidem 5 mg tablet 5 mg PO BEDTIME #90 tab 06/06/21 07/01/21 Rx ResMEd AirSense 10 06/15/21 07/01/21 History ciprofloxacin HCl 500 mg tablet 500 mg PO BID #20 tab 06/30/21 07/01/21 Rx (Cipro) Allergies Allergy/AdvReac Type Severity Reaction Status Date / Time No Known Allergies Allergy Uncoded 06/15/21 14:26 Review of Systems Review of Systems Narrative: Complete 10 point ROS negative except as noted above. Exam Vital Signs (past 8 hours): - 07/01/21 09:18 07/01/21 09:49 07/01/21 09:54 Temperature 98.2 F Pulse Rate 186 H 107 H Respiratory Rate 18 18 Blood Pressure 119/85 141/76 H Pulse Oximetry 97 93 95 07/01/21 10:00 07/01/21 10:13 07/01/21 10:30 Temperature Pulse Rate 101 H 104 H 96 H Respiratory Rate 18 15 15 Blood Pressure 123/65 145/69 H 112/58 L Pulse Oximetry 95 97 94 07/01/21 11:00 07/01/21 12:13 07/01/21 12:14 Temperature 98.3 F Pulse Rate 90 84 Respiratory Rate 15 18 Blood Pressure 115/68 137/79 Pulse Oximetry 96 96 96 Oxygen Delivery Method Room Air Narrative Exam Narrative: General: Alert Well-developed well-nourished and pleasant male NAD HEENT: Pupils equal and reactive Neck: No lymphadenopathy Lungs: Clear to auscultation Heart: Regular rhythm without murmur Abdomen: Obese, soft, no tenderness, no abdominal mass or HSM Extremities: Warm, no edema Neurological: Alert and appears fully oriented, no focal weakness Objective Labs Result Diagrams: 07/01/21 09:25 07/01/21 09:25 Labs: Laboratory Results - last 24 hr 07/01/21 07/01/21 07/01/21 09:25 09:25 09:25 WBC 7.8 RBC 4.56 Hgb 15.0 Hct 43.2 MCV 94.8 MCH 33.0 MCHC 34.8 RDW 13.1 Plt Count 193 Neut % (Auto) 79.5 H Lymph % (Auto) 9.3 L Phillips % (Auto) 10.3 Eos % (Auto) 0.3 L Baso % (Auto) 0.6 Neut # (Auto) 6200 Lymph # (Auto) 700 L [place] # (Auto) 800 Eos # (Auto) 0 Baso # (Auto) 0 Sodium 134 L Potassium 3.7 Chloride 102 Carbon Dioxide 27 BUN 17 Creatinine 0.79 Estimated GFR > 60.0 BUN/Creatinine Ratio 21.5 Glucose 146 H Lactate 1.2 Calcium 9.2 Total Bilirubin 1.2 AST 42 ALT 37 Alkaline Phosphatase 83 Total Creatine Kinase 92 CK-MB (CK-2) TNP CK-MB (CK-2) Rel Index TNP Troponin I 0.015 NT-Pro-B Natriuret Pep 226 Total Protein 7.5 Albumin 4.1 Globulin 3.4 Albumin/Globulin Ratio 1.2 Procalcitonin 1.37 H Urine Color Urine Appearance Urine pH Ur Specific [place] Urine Protein Urine Glucose (UA) Urine Ketones Urine Occult Blood Urine Nitrate Urine Bilirubin Urine Urobilinogen Ur Leukocyte Esterase Urine RBC Urine WBC Ur Transition Epith Cell Urine Bacteria Ur Culture Indicated? SARS-CoV-2 (PCR) 07/01/21 07/01/21 09:25 09:50 WBC RBC Hgb Hct MCV MCH MCHC RDW Plt Count Neut % (Auto) Lymph % (Auto) Phillips % (Auto) Eos % (Auto) Baso % (Auto) Neut # (Auto) Lymph # (Auto) Phillips # (Auto) Eos # (Auto) Baso # (Auto) Sodium Potassium Chloride Carbon Dioxide BUN Creatinine Estimated GFR BUN/Creatinine Ratio Glucose Lactate Calcium Total Bilirubin AST ALT Alkaline Phosphatase Total Creatine Kinase CK-MB (CK-2) CK-MB (CK-2) Rel Index Troponin I NT-Pro-B Natriuret Pep Total Protein Albumin Globulin Albumin/Globulin Ratio Procalcitonin Urine Color Yellow Urine Appearance Clear Urine pH 6.5 Ur Specific [place] 1.015 Urine Protein Negative Urine Glucose (UA) Negative Urine Ketones Trace H Urine Occult Blood Negative Urine Nitrate Negative Urine Bilirubin Negative Urine Urobilinogen 0.2 Ur Leukocyte Esterase Negative Urine RBC None seen Urine WBC 1-5/hpf Ur Transition Epith Cell 0-1/hpf Urine Bacteria Occasional (0-1) Ur Culture Indicated? Culture not indicate SARS-CoV-2 (PCR) Negative Assessment & Plan Assessment & Plan narrative: 1. E coli bacteremia without sepsis, abdominal source versus UTI -source unclear as he had urinary symptoms and few bacteria urine but with negative urine culture, but CT scan shows mild sigmoid diverticulitis although he has not had typical presentation with abdominal pain or tenderness on exam -nl wBC and lactate -sinus tachycardia resolved in ED -continue Rocephin and metronidazole started in ED -await culture sensitivities -diet as tolerated -NS 100 cc/hr 2. Obstructive sleep apnea -uses CPAP at home, continue in hospital if able 3. Essential hypertension, stable -continue home meds 4. Hyperlipidemia -continue home med Admit status: Observation DVT prophylaxis: Lovenox Code status: Full code Time Spent With Patient Critical Care time: I spent a total of [] minutes of critical care time on this patient's care t anthony; this time is exclusive of procedural time. Quality VTE Deep Vein Thrombosis/Pulmonary Embolism Present on Admission: No
[2021-07-01] MEDS: ACETAMINOPHEN 325 MG TABLET 650 MG PO (17:26)
--- NOTE | 2021-07-01 18:21 | PC.NURSE ---
Patient arrived from ED approximately 1130. He is A&Ox3, VSS, afebrile on RA. Independently ambulating without weakness or dizziness. Skin wnl, he denies any falls recently. He reports he had flank pain upon his previous ED admisison but it had gone away after the antibiotics. He is tolerating IVF and IV antibiotics well. Eating 100 % of regular diet dinner. He had a slight CRUZ, controlled well with PRN tylenol this evening. IVF NS @ 100 ml/hr. Receiving IV flagyl and ceftriaxone. LS CTA. He denies diarrhea this shift or urinary symptoms. States he uses a CPAP at home but did not bring in because he didn't know he was going to be hospitalized. RT notified. Continuous monitoring.
[2021-07-01] MEDS: ATORVASTATIN 20 MG TABLET 10 MG PO (20:14)
[2021-07-01] MEDS: DOCUSATE 100 MG CAPSULE PO (20:14)
[2021-07-01] MEDS: ZOLPIDEM 5 MG TABLET PO (21:34)
[2021-07-02] VITALS (7 sets, daily range): BP systolic 127–137; BP diastolic 71–77; PULSE 71–78; RESP 16–18; TEMP 36.8; O2SAT 94–97
[2021-07-02 05:05] LABS: BUN Creatinine Ratio 26.5 (6-22); Blood Urea Nitrogen 18 mg/dL (9-20); Calcium 8.4 mg/dL (8.4-10.2); Carbon Dioxide 28 mmol/L (22-32); Chloride 105 mmol/L (98-107); Estimated Glomerular Filt Rate > 60.0 mL/min (>60); Glucose 115 mg/dL (80-110); HEMOLYSIS 20 (0-50); Potassium 3.7 mmol/L (3.4-5.1); Sodium 135 mmol/L (137-145)
[2021-07-02 05:11] LABS: Add Manual Diff / Slide Review NO; Basophils Absolute Auto 100 /uL (0-100); Basophils Percent Auto 2.2 % (0-2); Eosinophils Absolute Auto 200 /uL (0-450); Eosinophils Percent Auto 2.9 % (2-4); Hematocrit 37.7 % (41-53); Lymphocytes Absolute Auto 1100 /uL (1100-4500); Lymphocytes Percent Auto 17.7 % (25-40); Mean Corpuscular HGB Conc 34.4 % (30-36); Mean Corpuscular Hemoglobin 32.6 PG (26-34); Mean Corpuscular Volume 94.7 fL (80-100); Monocytes Absolute Auto 1100 /uL (0-900); Monocytes Percent Auto 18.2 % (3-14); Neutrophils Absolute Auto 3700 /uL (1500-7000); Platelet Count 208 X10^3/uL (150-400); Red Blood Cell Count 3.99 X10^6/uL (4.5-5.9); Red Cell Distribution Width 13.1 % (11.6-14.8); White Blood Cell Count 6.3 X10^3/uL (4.5-11.0)
[2021-07-02 05:21] LABS: Procalcitonin 0.91 ng/mL (<0.5)
--- NOTE | 2021-07-02 08:10 | PC.NURSE ---
Assess- Patient is alert and oriented x3, he denies pain. BT are active but hypoactive. in room and states that patient will most likely go home, he has given orders to hang an iv antibiotic first. Patient is eating breakfast now.
[2021-07-02] MEDS: CELECOXIB 200 MG CAPSULE PO (08:50)
[2021-07-02] MEDS: DOCUSATE 100 MG CAPSULE PO (08:50)
[2021-07-02] MEDS: TRIAMTERENE/HCTZ 37.5/25 CAPSULE 1 CAP PO (08:50)
[2021-07-02] MEDS: LOSARTAN 50 MG TABLET PO (08:50)
[2021-07-02] MEDS: ENOXAPARIN 40 MG/0.4 ML SYRINGE SUBCUT (08:50)
[2021-07-02] MEDS: cefTRIAXone 1,000 MG in SODIUM CHLORIDE 0.9% 100 ML 200 ML IV (08:51)
[2021-07-02] MEDS: SODIUM CHLORIDE 0.9% 1,000 ML 100 ML IV (08:52)
--- NOTE | 2021-07-02 10:43 | CM.IDA ---
Initial DCP Assessment Note Pt is a 80 yo male, resident of [place], arrives w/recent dx of E coli bacteremia, without sepsis, abdominal source versus UTI. Patient admitted observation for IV abx and will be DC back home today on po metronidazole PCP: Jessy Mcgovern Payer: DEEPA/LIZ Met w/patient this morning, introduced role. Patient is in good spirits, states he is being discharged today, [place], and has family in town, son will pick patient up upon DC. Plan: DC home w/spouse and family, po abx, via private vehicle. Patient denies needs from CM team IRENE Medrano Discharge Planning/Care Management CM Discharge Assessment Start: 07/02/21 10:41 Freq: Status: Active Protocol: Document 07/02/21 10:41 ROMEL (Rec: 07/02/21 10:43 ROMEL [id number]) Discharge Planning Assessment Assigned Golf Sales Manager IRENE Whiting DPOA/Assigned Designee Name Rebecca Sparrow, spouse Contact Information [phone] Advance Directives? Yes Advance Directives on File No History Provided By Patient,Medical Record Prior Living Arrangements Apartment/Condo Household Members spouse Type of transporation used prior to Drives own vehicle admit Independent with ADL's Yes Is patient alert and oriented? Yes Barriers to Discharge No Comment Home w/family on po abx Discharge Plan Home Transportation Arrangement family Referrals Initiated None needed
--- NOTE | 2021-07-02 11:19 | PM.DS.1 ---
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 He presented initially on June 29 with complaints of shaking chills, fever and urinary urgency and discomfort. He was given dose of Rocephin and discharged on oral ciprofloxacin. He reports feeling better with improvement of rigors and urinary discomfort. However he was called back to the ED because blood cultures are growing E coli while urine cultures remain negative. He has not noticed abdominal pain. He was noted to have impressive tachycardia with heart rate 180 in sinus rhythm when he 1st presented to the ED today. He was not hypotensive, hypoxic or febrile. His abdomen and pelvic CT from this 2nd ER visit showed findings consistent with mild diverticulitis in the sigmoid colon without perforation. Chest x-ray is normal. He had mild leukocytosis on initial ER visit which resolved. His lactate is normal. Discharge Providers Provider Date of admission: 07/01/21 10:40 Discharge Date: 07/02/21 Primary care physician: Jessy Mcgovern DO Discharge provider: Liborio Huerta MD Summary Hospital Course Discharge Diagnosis: 1. E coli bacteremia without sepsis 2. Acute sigmoid diverticulitis 3. Obstructive sleep apnea Patient was admitted to observation and treated with IV Rocephin and metronidazole for acute uncomplicated sigmoid diverticulitis found on abdominal CT. Repeat blood cultures from 2nd ER visit remain negative. The initial blood cultures from his 1st ER visit is growing E coli with sensitivities still pending. Patient has now received 3 days of IV antibiotic with counting the initial dose in 1st ED visit. This does not look like a resistant infection. He will complete 10 day course of ciprofloxacin and metronidazole as outpatient. He did not have any fever or signs of sepsis during his hospital stay. Status at Discharge Cognitive/behavioral status at discharge: oriented Functional status at discharge: independent ambulation Overall status at discharge: patient is back to baseline Time Spent with Patient Time spent: Less than 30 minutes Exam Vital Signs (past 8 hours): - 07/02/21 04:00 07/02/21 06:00 07/02/21 08:14 Temperature 98.3 F Pulse Rate 76 78 Respiratory Rate 18 16 Blood Pressure 137/77 Pulse Oximetry 94 97 96 07/02/21 08:40 07/02/21 11:14 Temperature 98.2 F Pulse Rate 71 Respiratory Rate 18 Blood Pressure 127/71 Pulse Oximetry 95 94 Fraction of Inspired Oxygen 21 Oxygen Delivery Method Room Air Oxygen Flow Rate 0 Objective Labs Result Diagrams: 07/02/21 04:45 07/02/21 04:45 Labs: Laboratory Results - last 24 hr 07/02/21 07/02/21 04:45 04:45 WBC 6.3 RBC 3.99 L Hgb 13.0 L Hct 37.7 L MCV 94.7 MCH 32.6 MCHC 34.4 RDW 13.1 Plt Count 208 Neut % (Auto) 59.0 D Lymph % (Auto) 17.7 L [place] % (Auto) 18.2 H Eos % (Auto) 2.9 Baso % (Auto) 2.2 H Neut # (Auto) 3700 Lymph # (Auto) 1100 [place] # (Auto) 1100 H Eos # (Auto) 200 Baso # (Auto) 100 Sodium 135 L Potassium 3.7 Chloride 105 Carbon Dioxide 28 BUN 18 Creatinine 0.68 Estimated GFR > 60.0 BUN/Creatinine Ratio 26.5 H Glucose 115 H Calcium 8.4 Procalcitonin 0.91 H PFSH Medical History 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 Diverticular disease (~2016) Insomnia Obesity (BMI 30-39.9) Obstructive sleep apnea, adult (~2004) Osteoarthritis Rheumatic fever (~1948) Sleep apnea (~2005) Surgical History Anesthesia Cataracts, bilateral (~2017) History of back surgery History of hernia surgery History of knee replacement History of removal of cyst Kidney stones Family History Father Cancer Brother Cancer Diabetes mellitus Sister MDS (myelodysplastic syndrome) Social History marital status: number of children: 3 household members: spouse lives independently: Yes education level: high school occupational status: employed and other Smoking Status: Former smoker alcohol intake: current substance use type: does not use Discharge Plan Discharge Plan Patient Disposition: Home Provider Discharge Comment: You received treatment for E. coli bacteria in your blood stream. This is probably due to diverticulitis noted on abdomen CT. Complete course of Cipro. I have also prescribed metronidazole for additional antibiotic therapy. Rx sent to [facility] . Discharge orders & Medications Prescriptions: New metronidazole 500 mg tablet 500 mg PO TID Qty: 30 0RF Continued losartan 50 mg tablet 50 mg PO DAILY Qty: 90 3RF lovastatin 20 mg tablet 20 mg PO DAILY Qty: 90 3RF triamterene-hydrochlorothiazid 37.5-25 mg tablet 1 tab PO QDAY Qty: 90 3RF celecoxib [Celebrex] 200 mg capsule 200 mg PO QDAY Qty: 100 3RF zolpidem 5 mg tablet 5 mg PO BEDTIME Qty: 90 0RF psyllium husk [Fiber (psyllium husk)] 0.4 gram capsule 0.4 gram PO DAILY Qty: 90 0RF ciprofloxacin HCl [Cipro] 500 mg tablet 500 mg PO BID Qty: 20 0RF (DME) ResMEd AirSense 10 See Rx Instructions .Route .MEDSUPPLY 0RF Rx Instructions: CPAP Min: 6 Max: 10 DME: [facility] Follow up/Referrals: Jessy Mcgovern DO [Primary Care Provider] - Diet/Activity/Treatments Diet: Diet as Tolerated Discharge Data Primary Care Provider: Jessy Mcgovern Attending Provider: Liborio Huerta VTE Deep Vein Thrombosis/Pulmonary Embolism Present on Admission: No
== END 2021-07-02 11:38 | disposition home or self-care (01) ==
LOC: ED 10:36 → AC 10:41
PROVIDERS: Admitting Provider Internal Medicine; Emergency Provider Emergency Medicine; PCP Family Medicine; Referring Provider Emergency Medicine; Visit Provider Internal Medicine
DX: R78.81 Bacteremia (principal); B96.20 Unspecified Escherichia coli [E. coli] as the cause of diseases classified elsewhere; N12 Tubulo-interstitial nephritis, not specified as acute or chronic; K57.30 Diverticulosis of large intestine without perforation or abscess without bleeding; I10 Essential (primary) hypertension; E78.5 Hyperlipidemia, unspecified; G47.33 Obstructive sleep apnea (adult) (pediatric); Z20.822 Contact with and (suspected) exposure to COVID-19
CPT/HCPCS: 36415; 71045; 74176; 80048; 80053; 81001; 82550; 83605; 83880; 84145; 84484; 85025; 87040; 87635; 93005; 94660; 94760; 96361; 96365; 96367; 96372; 99285; C9803; G0378; J0696; J1650

== ENCOUNTER → 2021-09-07 12:00 | Outpatient (CLI) | payer MEDICARE, SELFPAY ==
[2021-07-01 13:08] VITALS: BMI 33.9
[2021-07-02 01:09] VITALS: PULSE 77; RESP 18; O2SAT 96
[2021-09-07 12:38] LABS: Add Manual Diff / Slide Review NO; Basophils Absolute Auto 0 /uL (0-100); Basophils Percent Auto 0.6 % (0-2); Eosinophils Absolute Auto 100 /uL (0-450); Eosinophils Percent Auto 1.1 % (2-4); Hematocrit 44.2 % (41-53); Lymphocytes Absolute Auto 2300 /uL (1100-4500); Lymphocytes Percent Auto 35.6 % (25-40); Mean Corpuscular HGB Conc 33.9 % (30-36); Mean Corpuscular Hemoglobin 32.1 PG (26-34); Mean Corpuscular Volume 94.6 fL (80-100); Monocytes Absolute Auto 500 /uL (0-900); Monocytes Percent Auto 7.7 % (3-14); Neutrophils Absolute Auto 3500 /uL (1500-7000); Platelet Count 261 X10^3/uL (150-400); Red Blood Cell Count 4.68 X10^6/uL (4.5-5.9); Red Cell Distribution Width 13.7 % (11.6-14.8); White Blood Cell Count 6.4 X10^3/uL (4.5-11.0)
[2021-09-07 13:06] LABS: Alanine Aminotransferase 29 IU/L (<50); Albumin 4.6 g/dL (3.5-5.0); Albumin Globulin Ratio 1.4 (1.0-2.8); Alkaline Phosphatase 62 U/L (38-126); Aspartate Aminotransferase 28 IU/L (17-59); BUN Creatinine Ratio 26.4 (6-22); Bilirubin Total 0.9 mg/dL (0.2-1.3); Blood Urea Nitrogen 24 mg/dL (9-20); Calcium 9.8 mg/dL (8.4-10.2); Carbon Dioxide 30 mmol/L (22-32); Chloride 101 mmol/L (98-107); Estimated Glomerular Filt Rate > 60.0 mL/min (>60); Globulin 3.2 g/dL (1.7-4.1); Glucose 105 mg/dL (80-110); HEMOLYSIS < 15 (0-50); Potassium 3.9 mmol/L (3.4-5.1); Sodium 137 mmol/L (137-145); Total Protein 7.8 g/dL (6.3-8.2)
== END ==
PROVIDERS: PCP Family Medicine; Referring Provider Family Medicine; Visit Provider Family Medicine
DX: E66.9 Obesity, unspecified (principal); I10 Essential (primary) hypertension; D64.9 Anemia, unspecified
CPT/HCPCS: 36415; 80053; 85025

== ENCOUNTER → 2022-08-14 10:20 | Outpatient (CLI) | payer MEDICARE, SELFPAY ==
[2021-07-01 13:08] VITALS: BMI 33.9
[2021-07-02 01:09] VITALS: PULSE 77; RESP 18; O2SAT 96
--- NOTE | 2022-08-14 10:22 | DI.RAD.S_ITS ---
PROCEDURE: XR SHOULDER LT MIN 2V INDICATIONS: Left shoulder pain - AC joint TECHNIQUE: 3 views of the shoulder were acquired. COMPARISON: None. FINDINGS: Bones: No fractures or dislocations. No suspicious bony lesions. Visualized ribs appear intact. Severe acromioclavicular degenerative narrowing. Soft tissues: No suspicious soft tissue calcifications. IMPRESSION: Severe acromioclavicular degenerative narrowing. Dictated by: Tiny Johnson M.D. on 08/14/2022 at 15:32 Approved by: Tiny Johnson M.D. on 08/14/2022 at 15:32
== END ==
PROVIDERS: PCP Family Medicine; Referring Provider Physician Assistant; Visit Provider Physician Assistant
DX: M25.512 Pain in left shoulder (principal)
CPT/HCPCS: 73030

== ENCOUNTER 2023-02-05 09:18 | Emergency (ER) | payer MEDICARE, SELFPAY ==
[2021-07-01 13:08] VITALS: BMI 33.9
[2021-07-02 01:09] VITALS: PULSE 77; RESP 18; O2SAT 96
[2023-02-05 09:23] VITALS: BP 180/85; PULSE 107; O2SAT 96
[2023-02-05 09:29] VITALS: BP 180/85; PULSE 88; RESP 16; TEMP 37.2; O2SAT 97; BMI 30.7
[2023-02-05 09:30] VITALS: PULSE 89; O2SAT 94
--- NOTE | 2023-02-05 09:36 | DI.RAD.S_ITS ---
PROCEDURE: XR CHEST 1V INDICATIONS: cough, outside [place] travel TECHNIQUE: One view of the chest was acquired. COMPARISON: [facility], CR, XR CHEST 1V, 07/01/2021, 9:35. [facility], CR, XR CHEST 1V, 06/30/2021, 10:21. FINDINGS: Surgical changes and devices: None. Lungs and pleura: Patchy opacity in the medial left lower lobe. Lungs are otherwise clear. No pleural effusion or pneumothorax. Mediastinum: Mediastinal contours appear normal. Heart size is normal. Bones and chest wall: No suspicious bony lesions. Overlying soft tissues appear unremarkable. IMPRESSION: Patchy left lower lobe opacity is suspicious for pneumonia versus atelectasis, aspiration, or infarct. Approved by: Shashi Collins M.D. on 02/05/2023 at 10:16
[2023-02-05 09:44] LABS: Strep Grp A by PCR Rapid Negative (Negative)
[2023-02-05 09:55] LABS: COVID19 -Nasal RAPID Negative (Negative)
--- NOTE | 2023-02-05 09:56 | ED_ITS ---
HPI - URI/Sore Throat General Chief Complaint: Upper Respiratory Symptoms Stated Complaint: Sore throat for nine days Time Seen by Provider: 02/05/23 09:19 Source: patient Mode of arrival: Ambulatory History of Present Illness HPI Narrative: 82-year-old male former smoker with history of hypertension and hyperlipidemia presents with a chief complaint of at least a week's worth of upper respiratory symptoms including runny nose, nasal congestion, sore throat and a dry cough. He does admit that the dry cough has become a bit more harsh lately and occasionally produces sputum. He denies any significant shortness of breath. He is not dizzy nor weak or lightheaded denies any nausea, vomiting or diarrhea. He does state that he had traveled internationally and is concerned he may have caught something on the flight. His has similar symptoms. Related Data Home Medications Medication Instructions Recorded Confirmed ResMEd AirSense 10 06/15/21 08/14/22 Previous Rx's Medication Instructions Recorded psyllium husk 0.4 gram capsule 0.4 gram PO DAILY #90 caps 07/19/18 (Fiber (psyllium husk)) celecoxib 200 mg capsule (Celebrex) 200 mg PO QDAY #100 caps 06/22/22 zolpidem 5 mg tablet 5 mg PO BEDTIME #90 tabs 11/14/22 losartan 50 mg tablet See Rx Instructions .Route 12/11/22 .COMPLEX #90 tabs lovastatin 20 mg tablet See Rx Instructions .Route 12/11/22 .COMPLEX #90 tabs triamterene 37.5 See Rx Instructions .Route 01/16/23 mg-hydrochlorothiazide 25 mg tablet .COMPLEX #90 tabs amoxicillin 500 mg capsule 1,000 mg PO Q8H 5 days #30 caps 02/05/23 Allergies Allergy/AdvReac Type Severity Reaction Status Date / Time No Known Allergies Allergy Uncoded 08/14/22 09:27 Review of Systems Review of Systems Narrative: GENERAL: See HPI HEENT: see HPI RESPIRATORY: see HPI CARDIOVASCULAR: Denies chest pain, palpitations, orthopnea, edema, GASTROINTESTINAL: Denies nausea, vomiting, abdominal pain, diarrhea, constipation, melena. : Denies dysuria, frequency, incontinence, hematuria, urinary retention. MUSCULOSKELETAL: denies weakness, joint pain, or bony pain SKIN: Denies rash, skin lesions, or other NEUROLOGIC: Denies weakness, headache, numbness, change in speech, confusion, seizures, incoordination. PSYCHIATRIC: No concerning psychosocial issues. 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 Diverticular disease (~2015) Diverticulitis (~2020) Insomnia Obesity (BMI 30-39.9) Obstructive sleep apnea, adult (~2003) Osteoarthritis Rheumatic fever (~1948) Sleep apnea (~2004) Surgical History Anesthesia Cataracts, bilateral (~2016) History of back surgery History of hernia surgery History of knee replacement History of removal of cyst Kidney stones Family History Father Cancer Brother Cancer Diabetes mellitus Sister MDS (myelodysplastic syndrome) Social History marital status: number of children: 3 household members: spouse lives independently: Yes education level: high school occupational status: employed and other Smoking Status: Former smoker alcohol intake: current substance use type: does not use Smoking Status: Former smoker alcohol intake frequency: 0-2 drinks per day Substance Use Type: does not use Exam Narrative Exam Narrative: GENERAL: [82] year old patient appears stated age. Well-developed patient, in mild distress. HEAD: Atraumatic. Normocephalic. EYES: Pupils equal round and reactive. Extraocular motions intact. No scleral icterus. No injection or drainage. ENT: Nose without bleeding, purulent drainage. Clear postpharyngeal drainageThroat without erythema, tonsillar hypertrophy or exudate. Airway patent. NECK: Trachea midline. Non tender CARDIOVASCULAR: Regular rate and rhythm without murmurs, gallops, or rubs. RESPIRATORY: Clear to auscultation. Breath sounds equal bilaterally. No wheezes, rales, or rhonchi. no use of accessory muscles, no tachypnea or hypoxemia. Frequent relatively harsh sounding cough GASTROINTESTINAL: Abdomen soft, non-tender, nondistended. EXTREMITIES: No edema or joint tenderness. BACK: Nontender without deformity or crepitance. No flank tenderness. NEURO: AOx3. SKIN: No rash or erythema of visible areas Initial Vital Signs Initial Vital Signs: Vital Signs Pulse Rate 107 H 02/05/23 09:23 Blood Pressure 180/85 H 02/05/23 09:23 Pulse Oximetry 96 02/05/23 09:23 Course Orders Ordered: ED Orders 02/05/23 09:24 COVID19 -Nasal RAPID Stat Strep Grp A by PCR Rapid Stat Throat Culture Stat 02/05/23 09:36 XR chest 1V Stat Vital Signs Vital signs: Vital Signs - 8 hr 02/05/23 09:29 02/05/23 09:23 02/05/23 09:23 Temperature 98.9 F Pulse Rate 88 107 H Respiratory Rate 16 Blood Pressure 180/85 H 180/85 H Pulse Oximetry 97 96 Oxygen Delivery Method Room Air 02/05/23 09:30 Temperature Pulse Rate 89 Respiratory Rate Blood Pressure Pulse Oximetry 94 Oxygen Delivery Method MDM - URI/Sore Throat Lab Data Labs: Lab Results 02/05/23 02/05/23 Range/Units 09:24 09:24 SARS-CoV-2 (PCR) Negative (Negative) Group A Strep (PCR) Negative (Negative) Urine Dip Bedside Urine Glucose Negative Bedside Urine Bilirubin - Negative Bedside Urine Ketone - Negative Urine Specific [place] 1.005 Bedside Urine Occult Blood - Negative Bedside Urine pH 8.0 Bedside Urine Protein - Negative Bedside Urine Urobilinogen - Negative Bedside Urine Nitrite - Negative Bedside Urine Leukocytes - Negative Esterase MDM Narrative Medical decision making narrative: [82] year old patient presents with various upper respiratory symptoms worsening over the past week or so Multiple etiologies for patient's symptoms considered including, but not limited to: [COVID versus strep versus viral versus pneumonia versus other] Prior Charts reviewed in our EMR Primary Historian: patient Labs reviewed and interpreted by myself: COVID and strep negative Imaging reviewed: Chest x-ray notes left lower lobe pneumonia Patient's history and physical exam are reassuring. He has no significant work of breathing, no use of accessory muscle or need for supplemental oxygen. Patient appropriate for discharge. Antibiotics sent to his pharmacy of choice, encouraged to follow closely with his primary care provider, return precautions discussed and questions answered to his apparent satisfaction Findings and discharge diagnosis discussed with patient/family followed by verbalization of understanding Return precautions discussed with patient/family whom verbalize understanding of diagnosis and plan Discharge Plan Departure Patient Disposition: Home Clinical Impression: Left lower lobe pneumonia Qualifiers: Pneumonia type: due to unspecified organism Qualified Code(s): J18.9 - Pneumonia, unspecified organism Instructions: DI for Pneumonia -- Adult Activity Restrictions/Additional Instructions: *You have been diagnosed with [ left lower lobe pneumonia. your strep test and COVID are both negative *What to do: *Please continue to take your regular medications as directed. [ x] New medication prescriptions sent to your pharmacy: [ [facility]] [ ] New medication written as a paper prescription [ ] No new medications given *Please follow up with your primary care provider in 2-3 days, call for an analy ointment. Let them know you were seen in the Emergency Department and that we ask that you be seen in follow up. We will electronically transmit a record of today's note if your PCP is in our system *If you do not have a primary care provider please contact the [facility] Resource line at [phone]. They will ask some questions about your medical history and help get you set up with a doctor in the community. *Return to Emergency Department if you should have any new, worsening or concerning symptoms, such as [fever greater than 101 F, shaking chills, worsening pain, persistent vomiting or other bothersome symptoms] Prescriptions: New amoxicillin 500 mg capsule 1,000 mg PO Q8H 5 Days Qty: 30 0RF No Action celecoxib [Celebrex] 200 mg capsule 200 mg PO QDAY Qty: 100 3RF zolpidem 5 mg tablet 5 mg PO BEDTIME Qty: 90 0RF lovastatin 20 mg tablet See Rx Instructions .ROUTE .COMPLEX Qty: 90 0RF Dose Instruction: TAKE ONE TABLET BY MOUTH ONCE DAILY Rx Instructions: TAKE ONE TABLET BY MOUTH ONCE DAILY losartan 50 mg tablet See Rx Instructions .ROUTE .COMPLEX Qty: 90 0RF Dose Instruction: TAKE ONE TABLET BY MOUTH ONCE DAILY Rx Instructions: TAKE ONE TABLET BY MOUTH ONCE DAILY triamterene-hydrochlorothiazid 37.5-25 mg tablet See Rx Instructions .ROUTE .COMPLEX Qty: 90 1RF Dose Instruction: TAKE ONE TABLET BY MOUTH ONCE DAILY Rx Instructions: TAKE ONE TABLET BY MOUTH ONCE DAILY psyllium husk [Fiber (psyllium husk)] 0.4 gram capsule 0.4 gram PO DAILY Qty: 90 0RF (DME) ResMEd AirSense 10 See Rx Instructions .Route .MEDSUPPLY Rx Instructions: CPAP Min: 6 Max: 10 DME: [facility] Referrals: Jessy Mcgovern DO [Primary Care Provider] - Stand Alone Forms: Patient Portal/API
[2023-02-05 10:01] VITALS: BP 153/96; PULSE 65; RESP 16; O2SAT 100
== END 2023-02-05 10:27 | disposition home or self-care (01) ==
PROVIDERS: Emergency Provider Emergency Medicine; PCP Family Medicine
DX: J18.9 Pneumonia, unspecified organism (principal); Z20.822 Contact with and (suspected) exposure to COVID-19
CPT/HCPCS: 71045; 81003; 87070; 87635; 87651; 99283; C9803

== ENCOUNTER → 2023-04-13 07:52 | Outpatient (CLI) | payer MEDICARE, SELFPAY ==
[2023-03-20 10:15] VITALS: PULSE 77; RESP 18; O2SAT 96; BMI 33.9
[2023-04-13 09:02] LABS: Alanine Aminotransferase 23 IU/L (<50); Albumin 4.2 g/dL (3.5-5.0); Albumin Globulin Ratio 1.4 (1.0-2.8); Alkaline Phosphatase 56 U/L (38-126); Aspartate Aminotransferase 27 IU/L (17-59); BUN Creatinine Ratio 36.5 (6-22); Blood Urea Nitrogen 27 mg/dL (9-20); Calcium 9.6 mg/dL (8.4-10.2); Carbon Dioxide 30 mmol/L (22-32); Chloride 98 mmol/L (98-107); Cholesterol 194 mg/dL (140-199); Estimated Glomerular Filt Rate > 60 mL/min (>60); Globulin 2.9 g/dL (1.7-4.1); Glucose 117 mg/dL (80-110); HDL Cholesterol 83 mg/dL (40-60); HEMOLYSIS < 15 (0-50); LDL Cholesterol Calculated 86 mg/dL (<100); Potassium 3.9 mmol/L (3.4-5.1); Sodium 136 mmol/L (137-145); Total Protein 7.1 g/dL (6.3-8.2); Triglycerides 126 mg/dL (35-150)
== END ==
PROVIDERS: PCP Family Medicine; Referring Provider Family Medicine; Visit Provider Family Medicine
DX: I10 Essential (primary) hypertension (principal); Z00.00 Encounter for general adult medical examination without abnormal findings; E78.5 Hyperlipidemia, unspecified
CPT/HCPCS: 36415; 80053; 80061

== ENCOUNTER → 2023-05-07 11:24 | Outpatient (CLI) | payer MEDICARE, SELFPAY ==
[2023-03-20 10:15] VITALS: PULSE 77; RESP 18; O2SAT 96; BMI 33.9
[2023-05-07 13:43] LABS: Influenza A - CEPHEID Flu A NEGATIVE (NEGATIVE); Influenza B - CEPHEID Flu B NEGATIVE (NEGATIVE)
[2023-05-07 13:46] LABS: COVID-19 CEPHEID 4-PLEX PCR Negative (Negative)
== END ==
PROVIDERS: PCP Family Medicine; Visit Provider Family Medicine
DX: R05.9 Cough, unspecified (principal)
CPT/HCPCS: 0240U

== ENCOUNTER → 2023-05-07 11:35 | Outpatient (CLI) | payer MEDICARE, SELFPAY ==
[2023-03-20 10:15] VITALS: PULSE 77; RESP 18; O2SAT 96; BMI 33.9
--- NOTE | 2023-05-07 11:38 | DI.RAD.S_ITS ---
PROCEDURE: XR CHEST 2V INDICATIONS: cough, crackles LLL TECHNIQUE: 2 views of the chest were acquired. COMPARISON: [facility], CR, XR CHEST 1V, 02/05/2023, 9:38. [facility], CR, XR CHEST 1V, 07/01/2021, 9:35. FINDINGS: Surgical changes and devices: None. Lungs and pleura: Lungs are clear. No pleural effusions or pneumothorax. Mediastinum: Mediastinal contours are normal. Heart size is normal. Bones and chest wall: No suspicious bony abnormalities. Soft tissues appear unremarkable. IMPRESSION: No acute cardiopulmonary abnormality is seen. Dictated by: Willy Palmer M.D. on 05/07/2023 at 12:00 Approved by: Willy Palmer M.D. on 05/07/2023 at 12:00
== END ==
PROVIDERS: PCP Family Medicine; Referring Provider Family Medicine; Visit Provider Family Medicine
DX: J06.9 Acute upper respiratory infection, unspecified (principal); G47.33 Obstructive sleep apnea (adult) (pediatric); R05.9 Cough, unspecified
CPT/HCPCS: 0240U; 71046

== ENCOUNTER → 2024-04-07 16:44 | Outpatient (CLI) | payer MEDICARE, SELFPAY ==
[2023-03-20 10:15] VITALS: PULSE 77; RESP 18; O2SAT 96; BMI 33.9
[2024-04-07 17:44] LABS: BUN Creatinine Ratio 24.7 (6-22); Blood Urea Nitrogen 23 mg/dL (9-20); Calcium 9.3 mg/dL (8.4-10.2); Carbon Dioxide 28 mmol/L (22-32); Chloride 101 mmol/L (98-107); Estimated Glomerular Filt Rate > 60 mL/min (>60); Glucose 101 mg/dL (80-110); HEMOLYSIS < 15 (0-50); Potassium 3.9 mmol/L (3.4-5.1); Sodium 136 mmol/L (137-145)
== END ==
PROVIDERS: PCP Family Medicine; Referring Provider Family Medicine; Visit Provider Family Medicine
DX: Z00.00 Encounter for general adult medical examination without abnormal findings (principal)
CPT/HCPCS: 36415; 80048

== ENCOUNTER → 2025-04-08 14:53 | Outpatient (CLI) | payer MEDICARE, SELFPAY ==
[2023-03-20 10:15] VITALS: PULSE 77; RESP 18; O2SAT 96; BMI 33.9
[2025-04-08 15:47] LABS: Hematocrit 43.4 % (41-53); Hemoglobin 14.7 g/dL (13.5-17.5); Mean Corpuscular HGB Conc 33.8 % (30-36); Mean Corpuscular Hemoglobin 32.0 PG (26-34); Mean Corpuscular Volume 94.8 fL (80-100); Platelet Count 304 X10^3/uL (150-400)
[2025-04-08 16:36] LABS: Alanine Aminotransferase 17 IU/L (<50); Albumin 4.2 g/dL (3.5-5.0); Albumin Globulin Ratio 1.4 (1.0-2.8); Alkaline Phosphatase 82 U/L (38-126); Blood Urea Nitrogen 24 mg/dL (9-20); Calcium 9.3 mg/dL (8.4-10.2); Carbon Dioxide 28 mmol/L (22-32); Chloride 100 mmol/L (98-107); Cholesterol 171 mg/dL (140-199); Estimated Glomerular Filt Rate > 60 mL/min (>60); Globulin 3.0 g/dL (1.7-4.1); Glucose 111 mg/dL (70-99); HDL Cholesterol 80 mg/dL (40-60); HEMOLYSIS < 15 (0-50); Potassium 4.0 mmol/L (3.4-5.1); Sodium 135 mmol/L (137-145); Total Protein 7.2 g/dL (6.3-8.2); Triglycerides 100 mg/dL (35-150)
== END ==
PROVIDERS: PCP Family Medicine; Referring Provider Family Medicine; Visit Provider Family Medicine
DX: E78.2 Mixed hyperlipidemia (principal); I10 Essential (primary) hypertension; R19.5 Other fecal abnormalities; Z83.79 Family history of other diseases of the digestive system
CPT/HCPCS: 36415; 80053; 80061; 85027

== ENCOUNTER 2025-05-19 23:43 | Inpatient (IN) | payer MEDICARE, SELFPAY ==
[2023-03-20 10:15] VITALS: PULSE 77; RESP 18; O2SAT 96; BMI 33.9
[2025-05-19 23:48] VITALS: PULSE 104; O2SAT 95
--- NOTE | 2025-05-19 23:50 | DI.CT.S_ITS ---
PROCEDURE: CT ABDOMEN PELVIS W CON INDICATIONS: ab pain hx diverticulitis TECHNIQUE: After the administration of intravenous contrast, axial sections acquired from the lung bases to the pubic symphysis. Coronal and sagittal reformats were performed. For radiation dose reduction, the following was used: automated exposure control, adjustment of mA and/or kV according to patient size. COMPARISON: None. FINDINGS: Image quality: Diagnostic. Lower Chest: No significant findings. ABDOMEN: Liver: No solid mass. Gallbladder: Mildly distended gallbladder with gallstones noted near the gallbladder neck. Biliary ducts: No biliary dilation. Pancreas: No ductal dilation. Spleen: Size is within normal limits. Adrenal Glands: No adrenal nodules. Kidneys and Ureters: No hydronephrosis. No solid mass. No complex renal cystic lesion which requires follow up. Punctate nonobstructing left renal stones. Bilateral ureters are normal in course and caliber. No ureteral stone. Stomach and Bowel: Colonic diverticulosis with acute diverticulitis involving the sigmoid colon. No evidence for perforation or abscess formation. No evidence for bowel obstruction. The appendix is not definitively visualized. However, no secondary findings of acute inflammation are noted in the right lower quadrant. Peritoneum: No abnormal intraperitoneal fluid. No free air. Ventral Wall: No significant ventral hernia. Abdominal Nodes: No retroperitoneal or mesenteric adenopathy by size criteria. Vessels: Scattered atherosclerotic calcifications of the abdominal aorta and iliac vessels without aneurysmal dilatation. The inferior vena cava appears patent. PELVIS: Pelvic Organs: Prostatomegaly. Bladder: No bladder wall thickening, accounting for underdistention. Pelvic Nodes: No enlarged lymph nodes. Miscellaneous: No inguinal hernias are seen. Bones: No aggressive osseous abnormality. No acute vertebral body compression fractures. Multilevel spondylitic changes throughout the imaged spine. No suspicious osseous lesions. IMPRESSION: Colonic diverticulosis with acute diverticulitis involving the sigmoid colon. No evidence for perforation or abscess formation. Mildly distended gallbladder with gallstones. No wall thickening or pericholecystic fluid. Recommend clinical correlation for right upper quadrant abdominal pain. Other chronic/non-acute findings as above. Dictated by: Misha Lainez M.D. on 05/20/2025 at 1:31 Approved by: Misah Lainez M.D. on 05/20/2025 at 1:37
--- NOTE | 2025-05-19 23:50 | DI.RAD.S_ITS ---
PROCEDURE: XR CHEST 1V INDICATIONS: near syncope TECHNIQUE: One view of the chest was acquired. COMPARISON: [facility], CR, XR CHEST 2V, 05/07/2023, 11:42. FINDINGS: Surgical changes and devices: None. Lungs and pleura: Lungs are clear. No pleural effusions or pneumothorax. Mediastinum: Mediastinal contours appear normal. Heart size is normal. Bones and chest wall: No suspicious bony lesions. Overlying soft tissues appear unremarkable. IMPRESSION: No acute cardiopulmonary abnormalities or focal consolidation. Dictated by: Misha Lainez M.D. on 05/20/2025 at 1:38 Approved by: Misha Lainez M.D. on 05/20/2025 at 1:38
--- NOTE | 2025-05-19 23:50 | EKG_ITS ---
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
[2025-05-19 23:51] VITALS: BP 115/58; PULSE 100; O2SAT 92
[2025-05-19 23:52] VITALS: BP 115/50; PULSE 104; RESP 16; TEMP 37; O2SAT 98; BMI 32.9
--- NOTE | 2025-05-19 23:53 | ED_ITS ---
HPI - Dizziness General Chief Complaint: Dizziness Stated Complaint: GLF, dizziness, abd pain Time Seen by Provider: 05/19/25 23:50 History of Present Illness HPI Narrative: Patient is a 84-year-old male history of hypertension hyperlipidemia sleep apnea presenting to day with near syncopal episode. He reports he was sitting in his recliner but the time you got to his chair he fell is legs were giving weak and he fell to the ground. He did not hit his head he did not lose consciousness he is not on any anticoagulation medication. He denies any chest pain or palpitations. He has been having some ongoing abdominal discomfort off and on for the last 4 days. He has had some difficulty with urination as well. He denies any fever or chills. EMS reports that they think he may have been in SVT it was not caught on a rhythm strip and it was very low voltage. [id number] patient immediately did go into SVT heart rate of 170s and quickly got out of it. He is awake alert oriented the whole time did not lose consciousness denies any chest pain or palpitations in his completely asymptomatic Related Data Home Medications ?Medication ?Instructions ?Recorded ?Confirmed ResMEd AirSense 10 06/15/21 05/11/25 Previous Rx's ?Medication ?Instructions ?Recorded psyllium husk 0.4 gram capsule 0.4 gram PO DAILY #90 c aps 07/19/18 (Fiber (psyllium husk)) hydroxyzine HCl 25 mg tablet 12.5 - 25 mg (0.5 - 1 x 2 5 mg) PO 10/01/23 TID PRN anxiety #60 tabs celecoxib 200 mg capsule (Celebrex) 200 mg PO QDAY #10 0 caps 12/02/24 losartan 50 mg tablet See Rx Instructions .Route 1 .COMPLEX #90 tabs lovastatin 20 mg tablet 20 mg PO DAILY cholesterol # 90 tabs 04/08/25 triamterene 37.5 See Rx Instructions .Route 1 mg-hydrochlorothiazide 25 mg tablet .COMPLEX #90 tabs zolpidem 5 mg tablet 5 mg PO BEDTIME #90 tabs 08/02 Allergies Allergy/AdvReac Type Severity Reaction Status Date / Time No Known Drug Allergies Allergy Verified 05/19/25 23:52 Patient History Medical History (Updated 05/20/25 @ 05:21 by Heidy Norman DO) Encounter for initial annual wellness visit (AWV) in Medicare patient History of pneumonia Need for follow-up Diverticulitis (~2020) Obstructive sleep apnea, adult (~2003) Obesity (BMI 30-39.9) Insomnia Osteoarthritis Sleep apnea (~2004) Rheumatic fever (~194) 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 Diverticular disease (~2015) Surgical History Anesthesia History of removal of cyst History of knee replacement History of back surgery History of hernia surgery Cataracts, bilateral (~2016) Kidney stones Family History Father Cancer Brother Cancer Diabetes mellitus Sister MDS (myelodysplastic syndrome) Social History marital status: number of children: 3 household members: spouse lives independently: Yes education level: high school occupational status: employed and other Smoking Status: Never smoker alcohol intake: current substance use type: does not use alcohol intake frequency: 0-2 drinks per day Exam Initial Vital Signs Initial Vital Signs: Vital Signs Pulse Rate 104 H 05/19/25 23:48 Pulse Oximetry 95 05/19/25 23:48 GENERAL: Alert pleasant well-appearing 84-year-old male and in no acute distress. HEENT: Head atraumatic,EOMI, pupils reactive, face symmetric, moist mucous membranes NECK: Supple no vertebral tenderness full range of CARDIOVASCULAR: Regular rate and rhythm without murmurs, rubs or gallops. RESPIRATORY: Breath sounds equal bilaterally, no wheezes rales or rhonchi. ABDOMEN: Soft, nontender. Minimal tenderness, but some periumbilical pain. Normoactive bowel sounds all 4 quadrants. No guarding or rebound. EXTREMITIES: Normal range of motion, no clubbing or edema. Neurovascularly intact NEUROLOGICAL: Alert and oriented x4.Normal gait and speech. Cranial nerves II through XII grossly intact. Area Intelligence Technician strength equal bilaterally moving all extremities SKIN: Warm, dry, no laceration, no petechiae, no rashes or lesions. Course Orders Ordered: ED Orders 05/19/25 23:50 CT abdomen pelvis w con Stat XR chest 1V Stat Complete Blood Count AUTO DIFF Stat Comprehensive Metabolic Panel Stat Lactate (Lactic Acid) Stat Lipase Stat Magnesium Stat NT-proBNP (BNP-Adult 18+) Stat Troponin I Stat EKG-12 Lead Stat 05/19/25 23:53 CT head/brain wo con Stat 05/20/25 00:01 TSH [Thyroid Stimulating Hormone] Stat 05/20/25 00:15 D Dimer Stat 05/20/25 02:34 Urine Culture Stat Urine Microscopic Stat 05/20/25 03:57 CT angio chest PE protocol Stat 05/21/25 06:00 Basic Metabolic Panel DAILY Complete Blood Count AUTO DIFF DAILY Acetaminophen (Acetaminophen 325 Mg Tablet) 650 mg PO Q6H PRN PRN Reason: Fever/Mild Pain (1-3) Hydrocodone Bitart/Acetaminophen (Hydrocodone/Acet 5/325 Tablet) 1 tab PO Q4H PRN PRN Reason: Pain, Moderate (4-6) Atorvastatin Calcium (Atorvastatin 20 Mg Tablet) 10 mg PO DAILY CARA Hydromorphone HCl (Hydromorphone Hcl 0.5 Mg/0.5 Ml Syringe) 0.5 mg IV Q2H PRN PRN Reason: Pain, Severe (7-10) Sodium Chloride (Normal Saline 0.9%) 1,000 mls @ 100 mls/hr IV CONT CARA Ceftriaxone Sodium 2,000 mg/ (Sodium Chloride) 100 mls @ 200 mls/hr IV Q24H CARA Metronidazole (Flagyl) 500 mg in 100 mls @ 100 mls/hr IV Q6H CARA Naloxone HCl (Naloxone 0.4 Mg/Ml Vial) 0.2 mg IV Q2MIN PRN PRN Reason: Opiate Reversal Ondansetron HCl (Ondansetron 4 Mg/2 Ml Inj) 4 mg IV Q8HR PRN PRN Reason: Nausea And Vomiting Zolpidem Tartrate (Zolpidem 5 Mg Tablet) 5 mg PO BEDTIME CARA Discontinued Medications Ceftriaxone Sodium 2,000 mg/ (Sodium Chloride) 100 mls @ 200 mls/hr IV NOW ONE Stop: 05/20/25 01:52 Last Infusion: 05/20/25 03:25 Dose: Infused Documented By: Admin: 05/20/25 02:42 Dose: 200 mls/hr Documented By: ARACELIS Metronidazole (Flagyl) 500 mg in 100 mls @ 100 mls/hr IV NOW ONE Stop: 05/20/25 02:50 Last Infusion: 05/20/25 04:31 Dose: Infused Documented By: Admin: 05/20/25 03:25 Dose: 100 mls/hr Documented By: AB Vital Signs Vital signs: Vital Signs - 8 hr 05/19/25 23:48 05/19/25 23:51 05/19/25 23:51 Temperature Pulse Rate 104 H 100 H Respiratory Rate Blood Pressure 115/58 L Pulse Oximetry 95 92 Oxygen Delivery Method 05/19/25 23:52 05/20/25 00:00 05/20/25 00:00 Temperature 98.6 F Pulse Rate 104 H 99 H Respiratory Rate 16 24 Blood Pressure 115/50 L 110/57 L Pulse Oximetry 98 92 Oxygen Delivery Method Room Air 05/20/25 00:30 05/20/25 00:30 05/20/25 01:14 Temperature Pulse Rate 87 83 Respiratory Rate 21 28 H Blood Pressure 95/53 L Pulse Oximetry 90 L 95 Oxygen Delivery Method 05/20/25 01:14 05/20/25 01:30 05/20/25 01:30 Temperature Pulse Rate 81 Respiratory Rate 23 Blood Pressure 104/58 L 95/51 L Pulse Oximetry 93 Oxygen Delivery Method 05/20/25 02:00 05/20/25 02:00 05/20/25 02:30 Temperature Pulse Rate 90 Respiratory Rate 30 H Blood Pressure 105/53 L 96/51 L Pulse Oximetry 95 Oxygen Delivery Method 05/20/25 02:30 05/20/25 03:00 05/20/25 03:00 Temperature Pulse Rate 70 65 Respiratory Rate 25 H 22 Blood Pressure 91/55 L Pulse Oximetry 93 92 Oxygen Delivery Method Room Air 05/20/25 03:30 05/20/25 03:30 05/20/25 04:00 Temperature Pulse Rate 73 148 H Respiratory Rate 20 13 Blood Pressure 103/54 L Pulse Oximetry 95 97 Oxygen Delivery Method 05/20/25 04:00 Temperature Pulse Rate Respiratory Rate Blood Pressure 111/63 Pulse Oximetry Oxygen Delivery Method MDM - Dizziness Lab Data 05/20/25 00:15 05/20/25 00:15 Labs: Lab Results 05/20/25 05/20/25 05/20/25 Range/Units 00:01 00:15 02:34 WBC 18.9 H (4.5-11.0) X10^3/uL RBC 4.22 L (4.5-5.9) X10^6/uL Hgb 13.5 (13.5-17.5) g/dL Hct 39.7 L (41-53) % MCV 94.1 (80-100) fL MCH 32.0 (26-34) PG MCHC 34.0 (30-36) % RDW 14.0 (11.6-14.8) % Plt Count 253 (150-400) X10^3/uL Neut % (Auto) 89.1 H (50-75) % Lymph % (Auto) 3.6 L (25-40) % [place] % (Auto) 6.7 (3-14) % Eos % (Auto) 0.1 L (2-4) % Baso % (Auto) 0.5 (0-2) % Neut # (Auto) 02423 H (4328-3936) /uL Lymph # (Auto) 700 L (2714-8820) /uL [place] # (Auto) 1300 H (0-900) /uL Eos # (Auto) 0 (0-450) /uL Baso # (Auto) 100 (0-100) /uL D-Dimer 1030 H (<500) ng/ml Sodium 134 L (137-145) mmol/L Potassium 3.5 (3.4-5.1) mmol/L Chloride 100 (98-107) mmol/L Carbon Dioxide 26 (22-32) mmol/L BUN 29 H (9-20) mg/dL Creatinine 0.90 (0.66-1.25) mg/dL Estimated GFR > 60 (>60) mL/min BUN/Creatinine Ratio 32.2 H (6-22) Glucose 191 H (70-99) mg/dL Lactate 1.4 (0.7-2.1) mmol/L Calcium 9.5 (8.4-10.2) mg/dL Magnesium 1.7 (1.6-2.3) mg/dL Total Bilirubin 0.9 (0.2-1.3) mg/dL AST 35 (17-59) IU/L ALT 28 (<50) IU/L Alkaline Phosphatase 88 (38-126) U/L Troponin I 0.014 (0.01-0.034) ng/mL NT-Pro-B Natriuret Pep 297 (<450) pg/mL Total Protein 7.0 (6.3-8.2) g/dL Albumin 3.8 (3.5-5.0) g/dL Globulin 3.2 (1.7-4.1) g/dL Albumin/Globulin Ratio 1.2 (1.0-2.8) Lipase 26 (23-300) U/L TSH 1.71 (0.47-4.68) uIU/mL Urine RBC None seen (0-5/HPF) Urine WBC 30-100/hpf H (0-5/HPF) Ur Squamous Epith Cells 0-1 /hpf (0-5/HPF) Ur Transition Epith Cell 0-1/hpf (0-5/HPF) Urine Bacteria Many (>30) H (None) Ur Culture Indicated? Specimen cultured Vol Urine Centrifuged 10ml (spun) Urine Dip Bedside Urine Glucose Negative Bedside Urine Bilirubin - Negative Bedside Urine Ketone - Negative Urine Specific [place] 1.010 Bedside Urine Occult Blood ++ Bedside Urine pH 6.0 Bedside Urine Protein +/- 15 Bedside Urine Urobilinogen - Negative Bedside Urine Nitrite - Negative Bedside Urine Leukocytes +++ [address] scan - abdomen/pelvis: Radiologist's Impression: PROCEDURE: CT ABDOMEN PELVIS W CON INDICATIONS: ab pain hx diverticulitis TECHNIQUE: After the administration of intravenous contrast, axial sections acquired from the lung bases to the pubic symphysis. Coronal and sagittal reformats were performed. For radiation dose reduction, the following was used: automated exposure control, adjustment of mA and/or kV according to patient size. COMPARISON: None. FINDINGS: Image quality: Diagnostic. Lower Chest: No significant findings. ABDOMEN: Liver: No solid mass. Gallbladder: Mildly distended gallbladder with gallstones noted near the gallbladder neck. Biliary ducts: No biliary dilation. Pancreas: No ductal dilation. Spleen: Size is within normal limits. Adrenal Glands: No adrenal nodules. Kidneys and Ureters: No hydronephrosis. No solid mass. No complex renal cystic lesion which requires follow up. Punctate nonobstructing left renal stones. Bilateral ureters are normal in course and caliber. No ureteral stone. Stomach and Bowel: Colonic diverticulosis with acute diverticulitis involving the sigmoid colon. No evidence for perforation or abscess formation. No evidence for bowel obstruction. The appendix is not definitively visualized. However, no secondary findings of acute inflammation are noted in the right lower quadrant. Peritoneum: No abnormal intraperitoneal fluid. No free air. Ventral Wall: No significant ventral hernia. Abdominal Nodes: No retroperitoneal or mesenteric adenopathy by size criteria. Vessels: Scattered atherosclerotic calcifications of the abdominal aorta and iliac vessels without aneurysmal dilatation. The inferior vena cava appears patent. PELVIS: Pelvic Organs: Prostatomegaly. Bladder: No bladder wall thickening, accounting for underdistention. Pelvic Nodes: No enlarged lymph nodes. Miscellaneous: No inguinal hernias are seen. Bones: No aggressive osseous abnormality. No acute vertebral body compression fractures. Multilevel spondylitic changes throughout the imaged spine. No suspicious osseous lesions. IMPRESSION: Colonic diverticulosis with acute diverticulitis involving the sigmoid colon. No evidence for perforation or abscess formation. Mildly distended gallbladder with gallstones. No wall thickening or pericholecystic fluid. Recommend clinical correlation for right upper quadrant abdominal pain. Other chronic/non-acute findings as above. Dictated by: Misha Lainez M.D. on 05/20/2025 at 1:31 Approved by: Misha Lainez M.D. on 05/20/2025 at 1:37 Chest x-ray: Radiologist's Impression: PROCEDURE: XR CHEST 1V INDICATIONS: near syncope TECHNIQUE: One view of the chest was acquired. COMPARISON: [facility], , XR CHEST 2V, 05/07/2023, 11:42. FINDINGS: Surgical changes and devices: None. Lungs and pleura: Lungs are clear. No pleural effusions or pneumothorax. Mediastinum: Mediastinal contours appear normal. Heart size is normal. Bones and chest wall: No suspicious bony lesions. Overlying soft tissues appear unremarkable. IMPRESSION: No acute cardiopulmonary abnormalities or focal consolidation. Dictated by: Misha Lainez M.D. on 05/20/2025 at 1:38 CT scan - head: Radiologist's Impression: PROCEDURE: CT HEAD/BRAIN WO CON INDICATIONS: syncope TECHNIQUE: Noncontrast 4.5 mm thick angled axial sections acquired from the foramen magnum to the vertex, with coronal and sagittal reformats. For radiation dose reduction, the following was used: automated exposure control, adjustment of mA and/or kV according to patient size. COMPARISON: None. FINDINGS: Image quality: Diagnostic. CSF spaces: Basal cisterns are patent. No extra-axial fluid collections. The ventricles are symmetric in size and shape. Brain: No intracranial bleeds or mass effect. There is cerebral volume loss, with resultant ventricular and sulcal prominence. There are periventricular and deep white matter chronic small vessel ischemic changes. There is intracranial internal carotid artery atherosclerosis. Skull and face: Calvarium and visualized facial bones appear intact, without suspicious lesions. Sinuses: Visualized sinuses and mastoids are clear. IMPRESSION: 1. CT head without acute intracranial abnormalities or acute calvarial fractures. 2. Age-related senescent changes and sequela of chronic small vessel ischemic disease. Dictated by: Misha Lainez M.D. on 05/20/2025 at 1:16 CT scan - chest: Radiologist's Impression: CT chest no pulmonary embolus. Spiculated 2.5 x 1.6 cm anterior right upper lobe nodule underlying malignancy suspected. 6 mm posterior left upper lobe nodule. Gallstones and gallbladder ECG Data Attestation: I personally reviewed and interpreted this ECG as follows: Interpretation: Sinus rhythm rate 100 [place] interval 194 QRS [address] changes low voltage MDM Narrative Medical decision making narrative: MDM CC: Abdominal pain near syncope Complicating co-morbidities: Hypertension hyperlipidemia Data collected from: EMS reports runs of SVT Medical records reviewed: PCP record 05/11/2025 for perforated tympanic membrane and cerumen impaction Differential considered: Cardiogenic syncope neurogenic syncope, bowel perforation, obstruction, diverticulitis, appendicitis, nephrolithiasis, bowel ischemia Exam documented above, pertinent findings include: Alert very well-appearing 84-year-old male head has no evidence of trauma neck is supple abdomen minimally tender suprapubic area no guarding no rebound Lab Test results independently reviewed as above. Pertinent findings: CBC shows leukocytosis of 18 with a left shift Lactic acid 1.4 Chemistry panel no electrolyte abnormalities creatinine 0.9 Troponin negative BNP 297 Independently reviewed EKG as above Sinus rhythm low voltage Imaging studies independently reviewed: Chest x-ray no acute cardiopulmonary process CT abdomen pelvis acute diverticulitis in sigmoid colon without evidence of perforation or abscess, there is gallstones but no thickening or pericholecystic fluid CT head no intracranial process CT chest no pulmonary embolus spiculated nodule 2.5 x 1.6 cm Consultations: 0205 Dr. Woo on-call cardiology updated on patient's symptoms and test results. At this time he reports no need to transfer if SVT resumes then may need a diltiazem drip Treatments: Rocephin Flagyl IV fluids Re-evaluations: Patient remaining in sinus rhythm he is sleeping but arousable abdomen soft no need for pain medication Discussion: Patient 84-year-old male presenting today with a near syncopal episode. He has had least 3 episodes of SVT tonight 1 at home caught by EMS into in the emergency department neither isn't long enough for an EKGs or need for medication. He actually is awake alert and is asymptomatic during these episodes. He does not pass out. D-dimer noted to be elevated greater than 1000. CT angio does not show evidence of pulmonary embolism but does show spiculated nodule concerning for malignancy. He is also found to have acute diverticulitis with leukocytosis of 18 but a normal lactic acid. Discussion with Cardiology in regards to cardiac arrhythmia and acute diverticulitis reports can stay here for monitoring treat his needed and supportive care with antibiotics for diverticulitis. Discharge Plan Departure Patient Disposition: Admitted as Observation Clinical Impression: Diverticulitis, Nonsustained supraventricular tachycardia, Pulmonary nodule less than 1 cm in diameter with moderate to high risk for malignant neoplasm Admit Date/Time: 05/20/25 04:17 Admit Provider: Jonatan Honeycutt
[2025-05-20] VITALS (20 sets, daily range): BP systolic 91–127; BP diastolic 50–67; PULSE 65–148; RESP 13–30; TEMP 36.4–38.5; O2SAT 90–98; BMI 32.9
[2025-05-20 00:34] LABS: Add Manual Diff / Slide Review NO; Hematocrit 39.7 % (41-53); Hemoglobin 13.5 g/dL (13.5-17.5); Lymphocytes Absolute Auto 700 /uL (1100-4500); Mean Corpuscular HGB Conc 34.0 % (30-36); Mean Corpuscular Hemoglobin 32.0 PG (26-34); Mean Corpuscular Volume 94.1 fL (80-100); Platelet Count 253 X10^3/uL (150-400)
[2025-05-20 00:39] LABS: Lactate (Lactic Acid) 1.4 mmol/L (0.7-2.1)
[2025-05-20 00:40] LABS: Alanine Aminotransferase 28 IU/L (<50); Albumin 3.8 g/dL (3.5-5.0); Albumin Globulin Ratio 1.2 (1.0-2.8); Alkaline Phosphatase 88 U/L (38-126); Blood Urea Nitrogen 29 mg/dL (9-20); Calcium 9.5 mg/dL (8.4-10.2); Carbon Dioxide 26 mmol/L (22-32); Chloride 100 mmol/L (98-107); Estimated Glomerular Filt Rate > 60 mL/min (>60); Globulin 3.2 g/dL (1.7-4.1); Glucose 191 mg/dL (70-99); HEMOLYSIS < 15 (0-50); Lipase 26 U/L (23-300); Magnesium 1.7 mg/dL (1.6-2.3); Potassium 3.5 mmol/L (3.4-5.1); Sodium 134 mmol/L (137-145); Total Protein 7.0 g/dL (6.3-8.2)
[2025-05-20 00:51] LABS: Troponin I 0.014 ng/mL (0.01-0.034)
[2025-05-20 01:18] LABS: NT-proBNP (BNP-Adult 18+) 297 pg/mL (<450)
[2025-05-20 01:41] LABS: Thyroid Stimulating Hormone 1.71 uIU/mL (0.47-4.68)
[2025-05-20] MEDS: cefTRIAXone 2,000 MG in SODIUM CHLORIDE 0.9% 100 ML 200 MG IV (02:42)
[2025-05-20] MEDS: metroNIDAZOLE 500 MG/100 ML PIGGYBACK 100 MG IV ×4 (03:25→21:21)
[2025-05-20 03:36] LABS: Culture Indicated Urine Specimen Cultured
--- NOTE | 2025-05-20 03:57 | DI.CT.S_ITS ---
PROCEDURE: CT ANGIO CHEST PE PROTOCOL INDICATIONS: Arrhythmia high dimer TECHNIQUE: After the administration of intravenous contrast, 2 mm thick sections acquired from the pulmonary apices to the posterior costophrenic angles. 3-dimensional maximum intensity projection (MIP) coronal and sagittal reformats were then acquired through the thorax. For radiation dose reduction, the following was used: automated exposure control, adjustment of mA and/or kV according to patient size. COMPARISON: [facility], CT, CT ABDOMEN PELVIS W CON, 05/20/2025, 0:20. FINDINGS: Image quality: Diagnostic. Pulmonary arteries: Pulmonary arteries are normal in size, and demonstrate no intraluminal filling defects to suggest central pulmonary embolism. Lower Neck: No enlarged lymph nodes. Thyroid: No thyroid nodules which require sonographic follow up, per consensus guidelines. Axillae: No enlarged lymph nodes. Chest Wall: Unremarkable. Bones: Unremarkable. Lungs and Pleura: No pneumothorax or pleural effusions. 2.1 x 2.0 cm spiculated density with air bronchograms noted within it in the anterior right upper lobe on image 113 of series 9. 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 There is also a 6 mm posterior left upper lobe pulmonary nodule on image 135 of series 9. Heart: Heart size is enlarged. Coronary artery calcifications include left main pulmonary artery calcifications. No pericardial effusion. Thoracic Vessels: No aortic aneurysm. Mediastinum and [place]: No enlarged lymph nodes. Esophagus: No wall thickening. No hiatal hernia. Upper Abdomen: Cholelithiasis. IMPRESSION: There is a spiculated mass in the right upper lobe. Suspect bronchogenic carcinoma. 6 mm left upper lobe pulmonary nodule. No acute pulmonary emboli. Cardiomegaly with left main coronary artery calcifications. Comment: Final report is concordant with preliminary interpretation provided by [facility]. Presence of a lung mass was reported to the emergency department on 05/20/2025 at 0516 hours PST. Comments: Recommend PET-CT. Tissue diagnosis of this lesion is likely best obtained under bronchoscopic guidance. Dictated by: Chase Chávez M.D. on 05/20/2025 at 9:15 Approved by: Chase Chávez M.D. on 05/20/2025 at 9:23
--- NOTE | 2025-05-20 04:44 | PC.NURSE ---
Pt has had a total of 5 episodes of a hr increasing to the 150s. lasting apx 30-45 seconds. During these episodes pt denies dizziness, chest pain or shortness of breath. 3 episodes happened shortly after arrival, last 2 episodes within the last 30 minutes.
--- NOTE | 2025-05-20 05:14 | PM.HP.1 ---
History of Present Illness History of Present Illness Date Patient Seen: 05/20/25 Time Patient Seen: 05:14 Chief complaint: GLF, dizziness, abd pain Narrative: 84-year-old male with past medical history of hypertension, anxiety, obstructive sleep apnea, insomnia and hyperlipidemia presents with near syncope. Per report, the patient was sitting in his recliner when he tried to get out of his recliner into his chair he felt WEAKNESS and fell to the ground. The patient did have some lightheadedness but did not lose consciousness. The patient denies any head injury or any pain. Over the last 4 days, the patient did experience some abdominal discomfort intermittently but denies any nausea, vomiting, diarrhea, fever, chills, chest pain, palpitation or shortness of breath. In the emergency room patient was hemodynamically stable but the patient has a brief episode of SVT with heart rate in the 170s. Labs shows a WBC of 18 glucose of 191 lactate [address] abdomen shows signs of acute diverticulitis involving the sigmoid colon but no evidence of perforation or abscess. There is a mildly distended gallbladder with gallstone recommended right upper quadrant if it is clinically indicated. However LFTs and bilirubin are normal. X-ray was negative for any sign of pneumonia. CT of the head was also negative. The patient was given IV Flagyl and IV ceftriaxone. In addition CT of the chest shows no PE. Dr. Samuel from cardiology was also consulted regarding SVT but the patient self converted to sinus rhythm without any intervention. 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 Diverticular disease (~2015) Surgical History Anesthesia History of removal of cyst History of knee replacement History of back surgery History of hernia surgery Cataracts, bilateral (~2017) Kidney stones Family History Father Cancer Brother Cancer Diabetes mellitus Sister MDS (myelodysplastic syndrome) Social History marital status: number of children: 3 household members: spouse lives independently: Yes education level: high school occupational status: employed and other alcohol intake: current substance use type: does not use Meds Home Medications and Allergies Home Medications ?Medication ?Instructions ?Recorded ?Confirmed ?Type psyllium husk 0.4 gram capsule 0.4 gram PO DAILY #90 caps 07/19/18 05/11/25 Rx (Fiber (psyllium husk)) ResMEd AirSense 10 06/15/21 05/11/25 History hydroxyzine HCl 25 mg tablet 12.5 - 25 mg (0.5 - 1 x 25 mg) PO 10/01/23 05/11/25 Rx TID PRN anxiety #60 tabs celecoxib 200 mg capsule (Celebrex) 200 mg PO QDAY #100 caps 12/02/24 05/11/25 Rx losartan 50 mg tablet See Rx Instructions .Route 04/08/25 05/11/25 Rx .COMPLEX #90 tabs lovastatin 20 mg tablet 20 mg PO DAILY cholesterol #90 tabs 04/08/25 05/11/25 Rx triamterene 37.5 See Rx Instructions .Route 04/08/25 05/11/25 Rx mg-hydrochlorothiazide 25 mg tablet .COMPLEX #90 tabs zolpidem 5 mg tablet 5 mg PO BEDTIME #90 tabs 04/08/25 05/11/25 Rx Allergies Allergy/AdvReac Type Severity Reaction Status Date / Time No Known Drug Allergies Allergy Verified 05/19/25 23:52 Review of Systems Review of Systems ROS: Yes All systems reviewed with the patient and are negative except as otherwise documented Exam Vital Signs (past 8 hours): - 05/19/25 23:48 05/19/25 23:51 05/19/25 23:51 Temperature Pulse Rate 104 H 100 H Respiratory Rate Blood Pressure 115/58 L Pulse Oximetry 95 92 Oxygen Delivery Method 05/19/25 23:52 05/20/25 00:00 05/20/25 00:00 Temperature 98.6 F Pulse Rate 104 H 99 H Respiratory Rate 16 24 Blood Pressure 115/50 L 110/57 L Pulse Oximetry 98 92 Oxygen Delivery Method Room Air 05/20/25 00:30 05/20/25 00:30 05/20/25 01:14 Temperature Pulse Rate 87 83 Respiratory Rate 21 28 H Blood Pressure 95/53 L Pulse Oximetry 90 L 95 Oxygen Delivery Method 05/20/25 01:14 05/20/25 01:30 05/20/25 01:30 Temperature Pulse Rate 81 Respiratory Rate 23 Blood Pressure 104/58 L 95/51 L Pulse Oximetry 93 Oxygen Delivery Method 05/20/25 02:00 05/20/25 02:00 05/20/25 02:30 Temperature Pulse Rate 90 Respiratory Rate 30 H Blood Pressure 105/53 L 96/51 L Pulse Oximetry 95 Oxygen Delivery Method 05/20/25 02:30 05/20/25 03:00 05/20/25 03:00 Temperature Pulse Rate 70 65 Respiratory Rate 25 H 22 Blood Pressure 91/55 L Pulse Oximetry 93 92 Oxygen Delivery Method Room Air 05/20/25 03:30 05/20/25 03:30 05/20/25 04:00 Temperature Pulse Rate 73 148 H Respiratory Rate 20 13 Blood Pressure 103/54 L Pulse Oximetry 95 97 Oxygen Delivery Method 05/20/25 04:00 Temperature Pulse Rate Respiratory Rate Blood Pressure 111/63 Pulse Oximetry Oxygen Delivery Method Oxygen Delivery Method Room Air Narrative Exam Narrative: Physical Exam: GENERAL: The patient is not in any acute distressed. Awake and alert. HEENT: Nonicteric sclerae, PERRLA, EOMI. Oropharynx clear. Moist mucous membranes. Conjunctivae appear well perfused. HEART: Regular rate and rhythm without murmurs. No lower extremities edema. LUNGS: Clear to auscultation bilaterally. No wheezing, crackles or rhonchi ABDOMEN: Some tenderness in lower abdomen but otherwise Soft, positive bowel sounds, . SKIN: No rash, no excessive bruising, petechiae, or purpura. NEUROLOGIC: AxO x 3. Cranial nerves II-XII intact without motor/sensory deficit. Objective Labs 05/20/25 00:15 05/20/25 00:15 Labs: Laboratory Results - last 24 hr 05/20/25 05/20/25 05/20/25 00:01 00:15 02:34 WBC 18.9 H RBC 4.22 L Hgb 13.5 Hct 39.7 L MCV 94.1 MCH 32.0 MCHC 34.0 RDW 14.0 Plt Count 253 Neut % (Auto) 89.1 H Lymph % (Auto) 3.6 L [place] % (Auto) 6.7 Eos % (Auto) 0.1 L Baso % (Auto) 0.5 Neut # (Auto) 66200 H Lymph # (Auto) 700 L [place] # (Auto) 1300 H Eos # (Auto) 0 Baso # (Auto) 100 D-Dimer 1030 H Sodium 134 L Potassium 3.5 Chloride 100 Carbon Dioxide 26 BUN 29 H Creatinine 0.90 Estimated GFR > 60 BUN/Creatinine Ratio 32.2 H Glucose 191 H Lactate 1.4 Calcium 9.5 Magnesium 1.7 Total Bilirubin 0.9 AST 35 ALT 28 Alkaline Phosphatase 88 Troponin I 0.014 NT-Pro-B Natriuret Pep 297 Total Protein 7.0 Albumin 3.8 Globulin 3.2 Albumin/Globulin Ratio 1.2 Lipase 26 TSH 1.71 Urine RBC None seen Urine WBC 30-100/hpf H Ur Squamous Epith Cells 0-1 /hpf Ur Transition Epith Cell 0-1/hpf Urine Bacteria Many (>30) H Ur Culture Indicated? Specimen cultured Vol Urine Centrifuged 10ml (spun) Assessment & Plan Assessment & Plan narrative: Acute diverticulitis. Admit the patient to medical telemetry. Of note the patient not septic at this time as lactate is normal. CT scan shows no sign of perforation or abscess. Continue IV Flagyl and IV ceftriaxone. Gentle IV fluid. Transient SVT. Heart rate did go up to the 170s but patient is converted back to sinus rhythm with normal rate. Will monitor for now. Hypertension. Monitor blood pressure and resume home medication accordingly. Leukocytosis. Again lactate is normal. Likely due to above. Monitor for now. DVT prophylaxis heparin subcu. CODE STATUS DNR/DNI Disposition likely home in 2 days. - As the provider of this telehealth evaluation, requested by the patient's evaluating physician, I attest that I introduced myself to the patient, provided my credentials and determined that telemedicine via a real-time, 2 way interactive audio and video platform is an appropriate and effective means of providing this service. - I reviewed the patient's chart and had a discussion with the member of the patient's treatment team. - The patient and I mutually agreed with continuation of this evaluation via telemedicine. The patient consented for the telemedicine evaluation. - This virtual encounter was taken place from [place] by Dr. Jonatan Honeycutt. The patient was evaluated at [facility]. The encounter was approximately 35 minutes. The nurse was present during the entire time of the encounter and was able to assists with exam/stethoscope. Time-Based Coding :: [TOTAL MINUTES] spent with patient and on the chart (including review of chart, obtaining history, exam, reviewing outside data, placing orders, documenting exam and treatment plan, and counseling patient) on [DATE].
[2025-05-20] MEDS: SODIUM CHLORIDE 0.9% 1,000 ML 100 ML IV ×2 (06:33→18:31)
--- NOTE | 2025-05-20 07:16 | PM.HP.1 ---
History of Present Illness History of Present Illness Date Patient Seen: 05/20/25 Chief complaint: GLF, dizziness, abd pain Narrative: Summary (night doctor): 84-year-old male with past medical history of hypertension, anxiety, obstructive sleep apnea, insomnia and hyperlipidemia presents with near syncope. Per report, the patient was sitting in his recliner when he tried to get out of his recliner into his chair he felt WEAKNESS and fell to the ground. The patient did have some lightheadedness but did not lose consciousness. The patient denies any head injury or any pain. Over the last 4 days, the patient did experience some abdominal discomfort intermittently but denies any nausea, vomiting, diarrhea, fever, chills, chest pain, palpitation or shortness of breath. In the emergency room patient was hemodynamically stable but the patient has a brief episode of SVT with heart rate in the 170s. Labs shows a WBC of 18 glucose of 191 lactate 1.[address] abdomen shows signs of acute diverticulitis involving the sigmoid colon but no evidence of perforation or abscess. There is a mildly distended gallbladder with gallstone recommended right upper quadrant if it is clinically indicated. However LFTs and bilirubin are normal. X-ray was negative for any sign of pneumonia. CT of the head was also negative. The patient was given IV Flagyl and IV ceftriaxone. In addition CT of the chest shows no PE. Dr. Samuel from cardiology was also consulted regarding SVT but the patient self converted to sinus rhythm without any intervention. S; he was a small amount of left lower quadrant pain. No nausea or fevers. He did have diverticulitis about 2 years ago. He was a very high pain tolerance and typically does not feel pain that much. No recent diarrhea or blood per rectum. ROS: O: VSS NAD, alert and oriented, fluent speech, calm. Normocephalic skull, EOMI, anicteric sclera, symmetric pupils. Oropharynx unremarkable, no droop. Neck supple, midline trachea, no adenopathy. Lungs clear, normal rate and effort. Heart regular, no murmur gallop or rub. Abdomen is soft, non distended and notable for mild tenderness in the left lower quadrant without rebound. Extremities are free of edema. Skin is free of rash or lesions. Joints are not swollen or deformed. Judgment appears to be normal. IMAGING: CTAP: acute diverticulitis involving the sigmoid colon but no evidence of perforation or abscess. There is a mildly distended gallbladder with gallstone recommended right upper quadrant if it is clinically indicated. CTH: WNL. A/P: 1. Acute diverticulitis. Admit the patient to medical telemetry. Of note the patient not septic at this time as lactate is normal. CT scan shows no sign of perforation or abscess. Continue IV Flagyl and IV ceftriaxone. Gentle IV fluid. 2. Transient SVT. Heart rate did go up to the 170s but patient is converted back to sinus rhythm with normal rate. Will monitor for now. 3. Hypertension. Monitor blood pressure and resume home medication accordingly. 4. Leukocytosis. Again lactate is normal. Likely due to above. Monitor for now. PLAN: -continue IV antibiotics and monitor white count. Possible discharge on May 21. DVT prophylaxis heparin subcu. CODE STATUS DNR/DNI Anticipate 2 midnights in the hospital, supports inpatient status. 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 Diverticular disease (~2015) Surgical History Anesthesia History of removal of cyst History of knee replacement History of back surgery History of hernia surgery Cataracts, bilateral (~2016) Kidney stones Family History Father Cancer Brother Cancer Diabetes mellitus Sister MDS (myelodysplastic syndrome) Social History marital status: number of children: 3 household members: spouse lives independently: Yes education level: high school occupational status: employed and other Smoking Status: Never smoker alcohol intake: current substance use type: does not use Meds Home Medications and Allergies Home Medications ?Medication ?Instructions ?Recorded ?Confirmed ?Type psyllium husk 0.4 gram capsule 0.4 gram PO DAILY #90 caps 07/19/18 05/20/25 Rx (Fiber (psyllium husk)) ResMEd AirSense 10 06/15/21 05/20/25 History hydroxyzine HCl 25 mg tablet 12.5 - 25 mg (0.5 - 1 x 25 mg) PO 10/01/23 05/20/25 Rx TID PRN anxiety #60 tabs celecoxib 200 mg capsule (Celebrex) 200 mg PO QDAY #100 caps 12/02/24 05/20/25 Rx losartan 50 mg tablet See Rx Instructions .Route 04/08/25 05/20/25 Rx .COMPLEX #90 tabs lovastatin 20 mg tablet 20 mg PO DAILY cholesterol #90 tabs 04/08/25 05/20/25 Rx triamterene 37.5 See Rx Instructions .Route 04/08/25 05/20/25 Rx mg-hydrochlorothiazide 25 mg tablet .COMPLEX #90 tabs zolpidem 5 mg tablet 5 mg PO BEDTIME #90 tabs 04/08/25 05/20/25 Rx Allergies Allergy/AdvReac Type Severity Reaction Status Date / Time No Known Drug Allergies Allergy Verified 05/19/25 23:52 Exam Vital Signs (past 8 hours): - 05/19/25 23:48 05/19/25 23:51 05/19/25 23:51 Temperature Pulse Rate 104 H 100 H Respiratory Rate Blood Pressure 115/58 L Pulse Oximetry 95 92 Oxygen Delivery Method Oxygen Flow Rate 05/19/25 23:52 05/20/25 00:00 05/20/25 00:00 Temperature 98.6 F Pulse Rate 104 H 99 H Respiratory Rate 16 24 Blood Pressure 115/50 L 110/57 L Pulse Oximetry 98 92 Oxygen Delivery Method Room Air Oxygen Flow Rate 05/20/25 00:30 05/20/25 00:30 05/20/25 01:14 Temperature Pulse Rate 87 83 Respiratory Rate 21 28 H Blood Pressure 95/53 L Pulse Oximetry 90 L 95 Oxygen Delivery Method Oxygen Flow Rate 05/20/25 01:14 05/20/25 01:30 05/20/25 01:30 Temperature Pulse Rate 81 Respiratory Rate 23 Blood Pressure 104/58 L 95/51 L Pulse Oximetry 93 Oxygen Delivery Method Oxygen Flow Rate 05/20/25 02:00 05/20/25 02:00 05/20/25 02:30 Temperature Pulse Rate 90 Respiratory Rate 30 H Blood Pressure 105/53 L 96/51 L Pulse Oximetry 95 Oxygen Delivery Method Oxygen Flow Rate 05/20/25 02:30 05/20/25 03:00 05/20/25 03:00 Temperature Pulse Rate 70 65 Respiratory Rate 25 H 22 Blood Pressure 91/55 L Pulse Oximetry 93 92 Oxygen Delivery Method Room Air Oxygen Flow Rate 05/20/25 03:30 05/20/25 03:30 05/20/25 04:00 Temperature Pulse Rate 73 148 H Respiratory Rate 20 13 Blood Pressure 103/54 L Pulse Oximetry 95 97 Oxygen Delivery Method Oxygen Flow Rate 05/20/25 04:00 05/20/25 04:31 05/20/25 04:32 Temperature Pulse Rate 91 H 86 Respiratory Rate 24 Blood Pressure 111/63 Pulse Oximetry 97 96 Oxygen Delivery Method Oxygen Flow Rate 05/20/25 04:32 05/20/25 04:40 05/20/25 04:40 Temperature Pulse Rate 106 H Respiratory Rate 19 Blood Pressure 118/63 127/62 Pulse Oximetry 96 Oxygen Delivery Method Oxygen Flow Rate 05/20/25 05:00 05/20/25 05:00 05/20/25 05:30 Temperature Pulse Rate 77 81 Respiratory Rate 20 19 Blood Pressure 107/51 L Pulse Oximetry 94 94 Oxygen Delivery Method Room Air Oxygen Flow Rate 05/20/25 05:30 05/20/25 05:50 Temperature 97.5 F L Pulse Rate 85 Respiratory Rate 18 Blood Pressure 113/57 L 126/67 Pulse Oximetry 98 Oxygen Delivery Method Oxygen Flow Rate 0 Oxygen Delivery Method Room Air Oxygen Flow Rate 0 Objective Labs 05/20/25 00:15 05/20/25 00:15 Labs: Laboratory Results - last 24 hr 05/20/25 05/20/25 05/20/25 00:01 00:15 02:34 WBC 18.9 H RBC 4.22 L Hgb 13.5 Hct 39.7 L MCV 94.1 MCH 32.0 MCHC 34.0 RDW 14.0 Plt Count 253 Neut % (Auto) 89.1 H Lymph % (Auto) 3.6 L [place] % (Auto) 6.7 Eos % (Auto) 0.1 L Baso % (Auto) 0.5 Neut # (Auto) 22957 H Lymph # (Auto) 700 L [place] # (Auto) 1300 H Eos # (Auto) 0 Baso # (Auto) 100 D-Dimer 1030 H Sodium 134 L Potassium 3.5 Chloride 100 Carbon Dioxide 26 BUN 29 H Creatinine 0.90 Estimated GFR > 60 BUN/Creatinine Ratio 32.2 H Glucose 191 H Lactate 1.4 Calcium 9.5 Magnesium 1.7 Total Bilirubin 0.9 AST 35 ALT 28 Alkaline Phosphatase 88 Troponin I 0.014 NT-Pro-B Natriuret Pep 297 Total Protein 7.0 Albumin 3.8 Globulin 3.2 Albumin/Globulin Ratio 1.2 Lipase 26 TSH 1.71 Urine RBC None seen Urine WBC 30-100/hpf H Ur Squamous Epith Cells 0-1 /hpf Ur Transition Epith Cell 0-1/hpf Urine Bacteria Many (>30) H Ur Culture Indicated? Specimen cultured Vol Urine Centrifuged 10ml (spun) Assessment & Plan Time-Based Coding :: 35 min spent with patient and on the chart (including review of chart, obtaining history, exam, reviewing outside data, placing orders, documenting exam and treatment plan, and counseling patient) on 05/20. Quality VTE Deep Vein Thrombosis/Pulmonary Embolism Present on Admission: No MIPS - Admit The patient?s Advance Care plan is not present because I confirmed today that the patient does not wish or was not able to name a surrogate decision maker or provide an Advance Care Plan.: Yes MIPS - Meds 'Current medications' to include all prescriptions, [id number] products, herbals, cannabis/cannabidiol products, and vitamin/mineral/dietary (nutritional) supplements. I have utilized all available resources to obtain, update, or review the patient?s current medications. [If Yes, STOP here]: Yes
--- NOTE | 2025-05-20 08:46 | CM.DANOTE ---
Initial DCP Assessment Note. Review EMR and PT Interview. Met with patient at bedside to discuss discharge needs.PT is alert x 4 sitting up in Bed. No acute distress. Independent. Lives with spouse. Payor:??[facility] PCP: Summary & Plan:?84 yo male arrived to ED via EMS c/o GLF, abd pain and dizziness. Admitted INPT Dx. Diverticulitis. Plan: IVF, IV abx, and monitor OUTPUT. Discharge Planning/Care Management CM Discharge Assessment Start: 05/20/25 05:32 Freq: Status: Active Protocol: Document 05/20/25 08:45 (Rec: 05/20/25 08:46 [id number]) Discharge Planning Assessment Assigned Discharge Jody Brasher RN CM Machine Setter Supervisor Provider Dr. Vera Insurance Medicare Advance Directives? Yes Advance Directives No on File History Provided By Patient,Medical Record Has Patient been No admitted in last 30 days? Prior Living House Arrangements Household Members spouse Type of Drives own vehicle transporation used prior to admit Independent with ADL Yes 's Is patient alert and Yes oriented? Barriers to No Discharge Comment Home w/family on po abx Discharge Plan Home Transportation family Arrangement Referrals Initiated None needed Review Status In Process Please Provide Date 05/20/25 Initial DC Assessment Was Performed Next Review Type Continued Stay Review
[2025-05-20] MEDS: ATORVASTATIN 20 MG TABLET 10 MG PO (09:13)
[2025-05-20] MEDS: METOPROLOL IR 25 MG TABLET 12.5 MG PO ×2 (09:17→20:46)
[2025-05-20] MEDS: ACETAMINOPHEN 325 MG TABLET 650 MG PO (12:05)
--- NOTE | 2025-05-20 14:23 | PC.NURSE ---
0830: ICU notified that patients heart rate was over 180 for 2 minutes while patient was using the bathroom. Patient denied chest pain, chest tightness, and palpitation. Dr. Monroe made aware. 1200: Patients temperature was 101.3 and heart rate was 93. Patient complained over headache and slight nausea. PRN Tylenol was given with good effect. Dr. Monroe was made aware.
[2025-05-20] MEDS: ZOLPIDEM 5 MG TABLET PO (20:47)
--- NOTE | 2025-05-20 22:37 | PC.NURSE ---
Patient is alert and oriented. Breath sounds CTA with RA sat of 97%. HRR w/telemetry reading of SR w/BBB. Denied nausea. BT hypoactive and has been having loose, incontinent stools. Tender to LLQ with palpation but denies pain. Does complain of some burning with urination; voiding per urinal. Is independent with bed mobility. Assisted to bathroom with SBA due to high fall risk score and recent fall. Was wearing bilateral calf SCD's at start of shift but requested they be removed at hs as he states he would be unable to sleep with them on. Bed alarm is activated due to high fall risk.
[2025-05-21] VITALS (10 sets, daily range): BP systolic 104–136; BP diastolic 44–64; PULSE 60–90; RESP 16–18; TEMP 36.3–37.9; O2SAT 94–98
[2025-05-21] MEDS: ACETAMINOPHEN 325 MG TABLET 650 MG PO ×2 (00:25→15:52)
[2025-05-21] MEDS: cefTRIAXone 2,000 MG in SODIUM CHLORIDE 0.9% 100 ML 200 MG IV (02:01)
[2025-05-21] MEDS: metroNIDAZOLE 500 MG/100 ML PIGGYBACK 100 MG IV ×4 (03:27→21:21)
[2025-05-21] MEDS: SODIUM CHLORIDE 0.9% 1,000 ML 100 ML IV ×2 (06:16→17:15)
--- NOTE | 2025-05-21 08:21 | PM.PN.1 ---
Subjective Subjective Interval history: S: Feeling a little bit better, still has left lower quadrant abdomen pain. No nausea. O: NAD, alert and oriented. Fluent speech. Lungs are clear, normal rate and effort. Heart is regular, no murmur gallop or rub. Abdomen is soft, non distended. Left lower quadrant tender, but improved. Extremities are free of edema. A/P: 1. Acute diverticulitis. Improving. 2. Transient SVT. Improved with beta blockade. 3. Hypertension. Monitor blood pressure and resume home medication accordingly. 4. Leukocytosis. Improving. PLAN: -continue IV antibiotics and monitor white count. He was febrile yesterday in his white count is improved but still significantly abnormal. Given age, and with comorbid conditions we will monitor him on IV antibiotics for an additional midnight and anticipate discharge on May 22 if he continues improving. DVT prophylaxis heparin SQ. CODE STATUS DNR/DNI Exam Vital Signs (past 8 hours): - 05/21/25 00:25 05/21/25 01:56 05/21/25 03:44 Temperature 100.1 F H 98.6 F 97.9 F Pulse Rate 68 Respiratory Rate 18 Blood Pressure 107/51 L Pulse Oximetry 96 Oxygen Flow Rate 0 Oxygen Delivery Method Room Air Oxygen Flow Rate 0 Objective Labs 05/20/25 00:15 05/20/25 00:15 [facility] Medical History (Updated 05/20/25 @ 05:21 by Heidy Norman DO) Encounter for initial annual wellness visit (AWV) in Medicare patient History of pneumonia Need for follow-up Diverticulitis (~2020) Obstructive sleep apnea, adult (~2004) Obesity (BMI 30-39.9) Insomnia Osteoarthritis Sleep apnea (~2004) Rheumatic fever (~1948) 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 Diverticular disease (~2015) Surgical History Anesthesia History of removal of cyst History of knee replacement History of back surgery History of hernia surgery Cataracts, bilateral (~2016) Kidney stones Family History Father Cancer Brother Cancer Diabetes mellitus Sister MDS (myelodysplastic syndrome) Social History marital status: number of children: 3 household members: spouse lives independently: Yes education level: high school occupational status: employed and other Smoking Status: Never smoker alcohol intake: current substance use type: does not use Assessment & Plan Time-Based Coding :: [TOTAL MINUTES] spent with patient and on the chart (including review of chart, obtaining history, exam, reviewing outside data, placing orders, documenting exam and treatment plan, and counseling patient) on [DATE]. Quality VTE Deep Vein Thrombosis/Pulmonary Embolism Present on Admission: No
[2025-05-21] MEDS: METOPROLOL IR 25 MG TABLET 12.5 MG PO ×2 (09:16→20:12)
[2025-05-21] MEDS: ATORVASTATIN 20 MG TABLET 10 MG PO (09:17)
[2025-05-21] MEDS: CELECOXIB 200 MG CAPSULE PO (20:13)
[2025-05-21] MEDS: ZOLPIDEM 5 MG TABLET PO (20:13)
[2025-05-21] MEDS: MELATONIN 3 MG TABLET PO (20:13)
[2025-05-21 20:48] LABS: Add Manual Diff / Slide Review NO; Hematocrit 37.8 % (41-53); Hemoglobin 12.9 g/dL (13.5-17.5); Lymphocytes Absolute Auto 1000 /uL (1100-4500); Mean Corpuscular HGB Conc 34.1 % (30-36); Mean Corpuscular Hemoglobin 32.2 PG (26-34); Mean Corpuscular Volume 94.4 fL (80-100); Platelet Count 219 X10^3/uL (150-400)
[2025-05-21 20:56] LABS: Blood Urea Nitrogen 23 mg/dL (9-20); Calcium 8.1 mg/dL (8.4-10.2); Carbon Dioxide 21 mmol/L (22-32); Chloride 103 mmol/L (98-107); Estimated Glomerular Filt Rate > 60 mL/min (>60); Glucose 136 mg/dL (70-99); HEMOLYSIS < 15 (0-50); Potassium 3.5 mmol/L (3.4-5.1); Sodium 133 mmol/L (137-145)
[2025-05-21] MEDS: PHENAZOPYRIDINE 100 MG TABLET PO (22:36)
[2025-05-22] VITALS: BP 93/42; PULSE 54; RESP 18; TEMP 36.4; O2SAT 96
[2025-05-22] MEDS: cefTRIAXone 2,000 MG in SODIUM CHLORIDE 0.9% 100 ML 200 MG IV (01:52)
[2025-05-22] MEDS: SODIUM CHLORIDE 0.9% 1,000 ML 100 ML IV (01:55)
[2025-05-22 04:00] VITALS: BP 122/65; PULSE 59; RESP 16; TEMP 35.9; O2SAT 93
[2025-05-22] MEDS: metroNIDAZOLE 500 MG/100 ML PIGGYBACK 100 MG IV ×2 (04:30→08:48)
[2025-05-22 08:00] VITALS: BP 111/55; PULSE 61; RESP 18; TEMP 36.6; O2SAT 97
[2025-05-22] MEDS: ATORVASTATIN 20 MG TABLET 10 MG PO (08:45)
[2025-05-22] MEDS: METOPROLOL IR 25 MG TABLET 12.5 MG PO (08:46)
--- NOTE | 2025-05-22 09:21 | P.DS_ITS ---
History of Present Illness History of Present Illness Chief complaint: GLF, dizziness, abd pain Narrative: Summary (night doctor): 84-year-old male with past medical history of hypertension, anxiety, obstructive sleep apnea, insomnia and hyperlipidemia presents with near syncope. Per report, the patient was sitting in his recliner when he tried to get out of his recliner into his chair he felt WEAKNESS and fell to the ground. The patient did have some lightheadedness but did not lose consciousness. The patient denies any head injury or any pain. Over the last 4 days, the patient did experience some abdominal discomfort intermittently but denies any nausea, vomiting, diarrhea, fever, chills, chest pain, palpitation or shortness of breath. In the emergency room patient was hemodynamically stable but the patient has a brief episode of SVT with heart rate in the 170s. Labs shows a WBC of 18 glucose of 191 [address] abdomen shows signs of acute diverticulitis involving the sigmoid colon but no evidence of perforation or abscess. There is a mildly distended gallbladder with gallstone recommended right upper quadrant if it is clinically indicated. However LFTs and bilirubin are normal. X-ray was negative for any sign of pneumonia. CT of the head was also negative. The patient was given IV Flagyl and IV ceftriaxone. In addition CT of the chest shows no PE. Dr. Samuel from cardiology was also consulted regarding SVT but the patient self converted to sinus rhythm without any intervention. IMAGING: CTAP: acute diverticulitis involving the sigmoid colon but no evidence of perforation or abscess. There is a mildly distended gallbladder with gallstone recommended right upper quadrant if it is clinically indicated. CTH: WNL. A/P: 1. Acute diverticulitis. Admit the patient to medical telemetry. Of note the patient not septic at this time as lactate is normal. CT scan shows no sign of perforation or abscess. Continue IV Flagyl and IV ceftriaxone. Gentle IV fluid. 2. Transient SVT. Heart rate did go up to the 170s but patient is converted back to sinus rhythm with normal rate. Will monitor for now. 3. Hypertension. Monitor blood pressure and resume home medication accordingly. 4. Leukocytosis. Again lactate is normal. Likely due to above. Monitor for now. Hospital course: He was treated with IV antibiotics and IV fluids. He would initial leukocytosis which normalized. Cultures E coli which was sensitive to amoxicillin. He had improvement of pain and was nontender in the day of discharge. He was felt to be stable for discharge with an additional 7 days of Augmentin [id number] b.i.d.. We will inform his surgeon, Dr. Stringer of his admission and he was asked to follow up with Dr. Stringer and his PCP within the next 1-2 weeks. He had transient an SVT which improved with beta blockade. Discharge Providers Provider Date of admission: 05/20/25 04:17 Discharge Date: 05/22/25 Primary care physician: Michel Vera DO Consults: 05/20/25 20:02 Consult to Pharmacy Routine Comment: per fall risk assessment 05/21/25 19:47 Consult to Pharmacy Routine Comment: med review / fall Discharge provider: Liborio Monroe MD Summary Hospital Course Discharge Diagnosis: 1. Acute diverticulitis. Improving. 2. Transient SVT. Improved with beta blockade. 3. Hypertension. Monitor blood pressure and resume home medication accordingly. 4. Leukocytosis. Improving. Hospital Course: As above. Status at Discharge Cognitive/behavioral status at discharge: oriented Functional status at discharge: independent ambulation Overall status at discharge: patient is progressing back to baseline Time Spent with Patient Time spent: Greater than 30 minutes Exam Vital Signs (past 8 hours): - 05/22/25 04:00 05/22/25 08:00 Temperature 96.6 F L 97.9 F Pulse Rate 59 L 61 Respiratory Rate 16 18 Blood Pressure 122/65 111/55 L Pulse Oximetry 93 97 Oxygen Flow Rate 0 Oxygen Delivery Method Room Air Oxygen Flow Rate 0 Narrative Exam Narrative: NAD, alert and oriented. Fluent speech. Lungs are clear, normal rate and effort. Heart is regular, no murmur gallop or rub. Abdomen is soft, non distended. Resolved left lower quadrant tenderness. Extremities are free of edema. Objective ECG Impression: Intervals [place] Rate: 100 P: 82 NC: 194 QRS: -11 QRSD: 74 T: 63 QT: 326 QTc: 420 Interpretive Statements Normal sinus rhythm Low voltage QRS Inferior infarct , age undetermined Labs 05/21/25 20:38 05/21/25 20:38 Labs: Laboratory Results - last 24 hr 05/21/25 20:38 WBC 10.2 RBC 4.01 L Hgb 12.9 L Hct 37.8 L MCV 94.4 MCH 32.2 MCHC 34.1 RDW 14.1 Plt Count 219 Neut % (Auto) 79.4 H Lymph % (Auto) 9.8 L [place] % (Auto) 9.7 Eos % (Auto) 0.6 L Baso % (Auto) 0.5 Neut # (Auto) 8100 H Lymph # (Auto) 1000 L [place] # (Auto) 1000 H Eos # (Auto) 100 Baso # (Auto) 100 Sodium 133 L Potassium 3.5 Chloride 103 Carbon Dioxide 21 L BUN 23 H Creatinine 0.78 Estimated GFR > 60 BUN/Creatinine Ratio 29.5 H Glucose 136 H Calcium 8.1 L PFSH Medical History Encounter for initial annual wellness visit (AWV) in Medicare patient History of pneumonia Need for follow-up Diverticulitis (~2020) Obstructive sleep apnea, adult (~2003) Obesity (BMI 30-39.9) Insomnia Osteoarthritis Sleep apnea (~2004) Rheumatic fever (~1947) 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 Diverticular disease (~2015) Surgical History Anesthesia History of removal of cyst History of knee replacement History of back surgery History of hernia surgery Cataracts, bilateral (~2016) Kidney stones Family History Father Cancer Brother Cancer Diabetes mellitus Sister MDS (myelodysplastic syndrome) Social History marital status: number of children: 3 household members: spouse lives independently: Yes education level: high school occupational status: employed and other Smoking Status: Never smoker alcohol intake: current substance use type: does not use Discharge Assessment & Plan Assessment and Plan Assessment: Diverticulitis, improved on IV antibiotics. PSV T, improved with beta blockade. Plan of Treatment: Discharge with 7 additional days of Augmentin. Follow up with PCP and/or Dr. Stringer to reassess. He may require extension of oral antibiotics depending. Discharge Plan Discharge Plan Patient Disposition: Home Provider Discharge Comment: Stable for discharge home, we will continue oral antibiotics and have close follow up with PCP next early week. Discharge orders & Medications Prescriptions: New amoxicillin-pot clavulanate 875-125 mg tablet 1 tab PO BID Qty: 14 0RF Continued celecoxib [Celebrex] 200 mg capsule 200 mg PO QDAY Qty: 100 3RF Patient Comments: at night psyllium husk [Fiber (psyllium husk)] 0.4 gram capsule 0.4 gram PO DAILY Qty: 90 0RF Patient Comments: last night hydroxyzine HCl 25 mg tablet 12.5 - 25 mg PO TID PRN (Reason: anxiety) Qty: 60 5RF Patient Comments: last night zolpidem 5 mg tablet 5 mg PO BEDTIME Qty: 90 1RF Patient Comments: last night triamterene-hydrochlorothiazid 37.5-25 mg tablet See Rx Instructions .ROUTE .COMPLEX Qty: 90 3RF Dose Instruction: TAKE ONE TABLET BY MOUTH ONCE DAILY Patient Comments: last night Rx Instructions: TAKE ONE TABLET BY MOUTH ONCE DAILY lovastatin 20 mg tablet 20 mg PO DAILY Qty: 90 3RF Patient Comments: last night losartan 50 mg tablet See Rx Instructions .ROUTE .COMPLEX Qty: 90 0RF Dose Instruction: TAKE ONE TABLET BY MOUTH ONCE DAILY Patient Comments: last night Rx Instructions: TAKE ONE TABLET BY MOUTH ONCE DAILY (DME) ResMEd AirSense 10 See Rx Instructions .Route .MEDSUPPLY Rx Instructions: CPAP Min: 6 Max: 10 DME: [facility] Follow up/Referrals: Michel Vera DO [Primary Care Provider, Family Practice] Diet/Activity/Treatments Diet: Diet as Tolerated Activity: As tolerated. Visit Report/Discharge Packet Instructions: DI for Diverticulitis, DI for Urinary Tract Infection (UTI) Stand Alone Forms: Patient Portal/API Discharge Data Primary Care Provider: Michel Vera Quality VTE Deep Vein Thrombosis/Pulmonary Embolism Present on Admission: No
--- NOTE | 2025-05-22 10:32 | CM.DPC ---
DCP Cont. Reviewed EMR and team rounds for pt's medical status and updates. Per Hospitalist, pt will need 1-more day of IV antibiotics, and will d/c home tomorrow. Will continue to monitor for any evolving d/c needs, however none are anticipated at this time.
--- NOTE | 2025-05-22 10:49 | PC.NURSE ---
1025:Discharge instructions given and understood by patient and . PIV and telemetry removed. Patient transported to private vehicle by wheelchair. driving him home.
== END 2025-05-22 10:52 | disposition home or self-care (01) | DRG 392 ==
LOC: ED 05-20 03:07 → AC 05-20 04:18
PROVIDERS: Admitting Provider Internal Medicine; Emergency Provider Emergency Medicine; PCP Family Medicine; Referring Provider Emergency Medicine; Visit Provider Internal Medicine
DX: K57.32 Diverticulitis of large intestine without perforation or abscess without bleeding (principal); I47.10 Supraventricular tachycardia, unspecified; I10 Essential (primary) hypertension; R55 Syncope and collapse; K80.20 Calculus of gallbladder without cholecystitis without obstruction; B96.20 Unspecified Escherichia coli [E. coli] as the cause of diseases classified elsewhere; E78.5 Hyperlipidemia, unspecified; F41.9 Anxiety disorder, unspecified; G47.00 Insomnia, unspecified; G47.33 Obstructive sleep apnea (adult) (pediatric); D72.829 Elevated white blood cell count, unspecified; F17.200 Nicotine dependence, unspecified, uncomplicated; Z66 Do not resuscitate
CPT/HCPCS: 51798; 70450; 71045; 71275; 74177; 80048; 80053; 81003; 81015; 83605; 83690; 83735; 83880; 84443; 84484; 85025; 85379; 87077; 87086; 87186; 93005; 96365; 96367; 99284; J0696; J7030; J7050; Q9967

== ENCOUNTER 2025-05-24 08:36 | Emergency (ER) | payer MEDICARE, SELFPAY ==
[2025-05-22 16:42] VITALS: PULSE 77; RESP 18; O2SAT 96; BMI 32.9
[2025-05-24] VITALS (37 sets, daily range): BP systolic 94–153; BP diastolic 55–86; PULSE 80–191; RESP 13–25; TEMP 36.7; O2SAT 95–98; BMI 30.2
--- NOTE | 2025-05-24 08:48 | EKG_ITS ---
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
--- NOTE | 2025-05-24 08:53 | DI.RAD.S_ITS ---
PROCEDURE: XR CHEST 1V INDICATIONS: chest pain TECHNIQUE: One view of the chest was acquired. COMPARISON: [facility], , XR CHEST 1V, 05/20/2025, 1:01. FINDINGS: Surgical changes and devices: Resuscitation pads overlie the patient. Lungs and pleura: Low lung volumes. Mild interstitial prominence. No focal consolidation. No pleural effusion. No pneumothorax. Mediastinum: Mediastinal contours appear normal. Heart size is normal. Bones and chest wall: No suspicious bony lesions. Overlying soft tissues appear unremarkable. IMPRESSION: No acute cardiopulmonary abnormality is seen. Dictated by: Brian Cintron M.D. on 05/24/2025 at 9:16 Approved by: Brian Cintron M.D. on 05/24/2025 at 9:23
--- NOTE | 2025-05-24 08:55 | DI.CT.S_ITS ---
PROCEDURE: CT ABDOMEN PELVIS W CON INDICATIONS: diverticulitis and bloody stool TECHNIQUE: After the administration of intravenous contrast, axial sections acquired from the lung bases to the pubic symphysis. Coronal and sagittal reformats were performed. For radiation dose reduction, the following was used: automated exposure control, adjustment of mA and/or kV according to patient size. COMPARISON: [facility], CT, CT ABDOMEN PELVIS W CON, 05/20/2025, 0:20. FINDINGS: Image quality: Diagnostic. Lower Chest: No significant findings. ABDOMEN: Liver: No solid mass. Gallbladder: Calcific cholelithiasis without evidence of acute cholecystitis. Biliary ducts: No biliary dilation. Pancreas: Fatty atrophy of the pancreas. Spleen: Size is within normal limits. Adrenal Glands: No adrenal nodules. Kidneys and Ureters: A few small nonobstructive renal stones. Stomach and Bowel: No evidence of obstruction. Numerous colonic diverticula with surrounding phlegm Rory changes throughout the sigmoid colon without free air or organized fluid collection. Moderate wall thickening of the sigmoid colon Peritoneum: No abnormal intraperitoneal fluid. No free air. Ventral Wall: No significant ventral hernia. Abdominal Nodes: No retroperitoneal or mesenteric adenopathy by size criteria. Vessels: Aorta and inferior vena cava are normal in size. PELVIS: Pelvic Organs: Unremarkable. Bladder: No bladder wall thickening, accounting for underdistention. Pelvic Nodes: No enlarged lymph nodes. Miscellaneous: No inguinal hernias are seen. Bones: No aggressive osseous abnormality. IMPRESSION: Acute simple diverticulitis of the sigmoid colon without organized abscess or fluid collection. Cholelithiasis without evidence of acute cholecystitis. Nonobstructive nephrolithiasis. Dictated by: Brian Cintron M.D. on 05/24/2025 at 9:09 Approved by: Brian Cintron M.D. on 05/24/2025 at 9:15
--- NOTE | 2025-05-24 09:04 | ED.ARRPALP ---
HPI - Arrhythmia/Palpitations General Chief Complaint: Arrhythmia/Palpitations Stated Complaint: Blood clot in stool Time Seen by Provider: 05/24/25 08:41 Source: patient Mode of arrival: Family Vehicle History of Present Illness HPI narrative: Patient 84-year-old male history of hypertension, anxiety OS a presenting to day with bloody stool. He was admitted May 20 through the for non complicated diverticulitis. He is given antibiotics he is still on antibiotics but reports that he had a large bloody bowel movement this morning. Having some mild abdominal discomfort. However he is found to have a heart rate in the 190s and found to be in SVT. He actually had episodes of SVT while in the emergency department on the which is why he was admitted to the hospital. Cardiology was consulted but he never had any episodes during admission and was ultimately discharged. He is now saying that he reports he feels dizzy lightheaded but denies any kind of chest pain or shortness of breath. He is not on any anticoagulation medication. Currently taking Augmentin for his diverticulitis. Patient was immediately brought back to a room vagal maneuvers tried which did work very briefly and brought him down to a sinus rhythm however he quickly escalated back up at which point he is given 10 mg of diltiazem. Related Data Home Medications ?Medication ?Instructions ?Recorded ?Confirmed ResMEd AirSense 10 06/15/21 05/22/25 Previous Rx's ?Medication ?Instructions ?Recorded psyllium husk 0.4 gram capsule 0.4 gram PO DAILY #90 caps 07/19/18 (Fiber (psyllium husk)) hydroxyzine HCl 25 mg tablet 12.5 - 25 mg (0.5 - 1 x 25 mg) PO 10/01/23 TID PRN anxiety #60 tabs celecoxib 200 mg capsule (Celebrex) 200 mg PO QDAY #100 caps 12/02/24 losartan 50 mg tablet See Rx Instructions .Route 04/08/25 .COMPLEX #90 tabs lovastatin 20 mg tablet 20 mg PO DAILY cholesterol #90 tabs 04/08/25 triamterene 37.5 See Rx Instructions .Route 04/08/25 mg-hydrochlorothiazide 25 mg tablet .COMPLEX #90 tabs zolpidem 5 mg tablet 5 mg PO BEDTIME #90 tabs 04/08/25 amoxicillin 875 mg-potassium 1 tab PO BID #14 tabs 05/22/25 clavulanate 125 mg tablet diltiazem HCl 120 mg 120 mg PO DAILY #30 caps 05/24/25 capsule,extended release 24 hr, controlled (DILT-XR) Allergies Allergy/AdvReac Type Severity Reaction Status Date / Time No Known Drug Allergies Allergy Verified 05/24/25 08:49 Patient History Medical History Encounter for initial annual wellness visit (AWV) in Medicare patient History of pneumonia Need for follow-up Diverticulitis (~2020) Obstructive sleep apnea, adult (~2003) Obesity (BMI 30-39.9) Insomnia Osteoarthritis Sleep apnea (~2004) Rheumatic fever (~1947) 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 Diverticular disease (~2015) Surgical History Anesthesia History of removal of cyst History of knee replacement History of back surgery History of hernia surgery Cataracts, bilateral (~2016) Kidney stones Family History Father Cancer Brother Cancer Diabetes mellitus Sister MDS (myelodysplastic syndrome) Social History marital status: number of children: 3 household members: spouse lives independently: Yes education level: high school occupational status: employed and other Smoking Status: Current some day smoker alcohol intake: current substance use type: does not use Smoking Status: Current some day smoker tobacco type: cigarettes alcohol intake frequency: 0-2 drinks per day Exam Initial Vital Signs Initial Vital Signs: Vital Signs Temperature 98.0 F 05/24/25 08:39 Pulse Rate 191 H 05/24/25 08:39 Respiratory Rate 20 05/24/25 08:39 Blood Pressure 140/63 05/24/25 08:39 Pulse Oximetry 97 05/24/25 08:39 Oxygen Delivery Method Room Air 05/24/25 08:39 GENERAL: Alert 84-year-old pleasant male and in no acute distress. HEENT: Head atraumatic,EOMI, pupils reactive, face symmetric, moist mucous membranes CARDIOVASCULAR: Tachycardic regular no murmurs RESPIRATORY: Breath sounds equal bilaterally, no wheezes rales or rhonchi. ABDOMEN: Soft, nontender. Normoactive bowel sounds all 4 quadrants. No guarding or rebound. EXTREMITIES: Normal range of motion, no clubbing or edema. Neurovascularly intact NEUROLOGICAL: Alert and oriented x4.Normal gait and speech. Cranial nerves II through XII grossly intact. SKIN: Warm, dry, no laceration, no petechiae, no rashes or lesions. Course Orders Ordered: ED Orders 05/24/25 08:48 Complete Blood Count AUTO DIFF Stat Comprehensive Metabolic Panel Stat Lipase Stat Magnesium Stat NT-proBNP (BNP-Adult 18+) Stat PTT Partial Thromboplastin Yazan Stat Prothrombin Time INR Stat Troponin I Stat 05/24/25 08:53 XR chest 1V Stat EKG-12 Lead Stat 05/24/25 08:55 CT abdomen pelvis w con Stat Discontinued Medications Diltiazem HCl (Diltiazem 25 Mg/5 Ml Sdv) 10 mg IV NOW ONE Stop: 05/24/25 08:54 Last Admin: 05/24/25 08:56 Dose: 10 mg Documented By: ELTON Vital Signs Vital signs: Vital Signs - 8 hr 05/24/25 08:39 05/24/25 08:46 05/24/25 08:47 Temperature 98.0 F Pulse Rate 191 H 186 H 185 H Respiratory Rate 20 23 23 Blood Pressure 140/63 Pulse Oximetry 97 97 Oxygen Delivery Method Room Air 05/24/25 08:47 05/24/25 08:48 05/24/25 08:48 Temperature Pulse Rate 189 H Respiratory Rate 22 Blood Pressure 94/55 L 153/86 H Pulse Oximetry 97 Oxygen Delivery Method Room Air 05/24/25 08:50 05/24/25 08:51 05/24/25 08:51 Temperature Pulse Rate 189 H 134 H Respiratory Rate 21 25 H Blood Pressure 121/81 Pulse Oximetry 97 98 Oxygen Delivery Method 05/24/25 08:55 05/24/25 08:55 05/24/25 08:56 Temperature Pulse Rate 180 H 181 H Respiratory Rate 19 Blood Pressure 128/81 128/81 Pulse Oximetry 97 Oxygen Delivery Method MDM - Arrhythmia/Palpitations Lab Data 05/24/25 08:48 05/24/25 08:48 Labs: Lab Results 05/24/25 Range/Units 08:48 WBC 8.7 (4.5-11.0) X10^3/uL RBC 4.89 (4.5-5.9) X10^6/uL Hgb 15.9 (13.5-17.5) g/dL Hct 45.5 (41-53) % MCV 93.1 (80-100) fL MCH 32.5 (26-34) PG MCHC 34.9 (30-36) % RDW 14.0 (11.6-14.8) % Plt Count 281 (150-400) X10^3/uL Neut % (Auto) 60.8 (50-75) % Lymph % (Auto) 22.9 L (25-40) % [place] % (Auto) 13.7 (3-14) % Eos % (Auto) 2.5 (2-4) % Baso % (Auto) 0.1 (0-2) % Neut # (Auto) 5300 (4532-8469) /uL Lymph # (Auto) 2000 (0341-8106) /uL [place] # (Auto) 1200 H (0-900) /uL Eos # (Auto) 200 (0-450) /uL Baso # (Auto) 0 (0-100) /uL Platelet Estimate Adequate on smear Plt Morphology Comment RBC Morphology Normal morphology PT 13.2 H (9.4-12.5) SECONDS INR 1.2 (0.9-1.3) APTT 27 (25.1-36.5) SECONDS Sodium 138 (137-145) mmol/L Potassium 3.6 (3.4-5.1) mmol/L Chloride 102 (98-107) mmol/L Carbon Dioxide 26 (22-32) mmol/L BUN 10 (9-20) mg/dL Creatinine 0.80 (0.66-1.25) mg/dL Estimated GFR > 60 (>60) mL/min BUN/Creatinine Ratio 12.5 (6-22) Glucose 136 H (70-99) mg/dL Calcium 9.1 (8.4-10.2) mg/dL Magnesium 2.0 (1.6-2.3) mg/dL Total Bilirubin 0.7 (0.2-1.3) mg/dL AST 54 (17-59) IU/L ALT 42 (<50) IU/L Alkaline Phosphatase 150 H D (38-126) U/L Troponin I < 0.012 (0.01-0.034) ng/mL NT-Pro-B Natriuret Pep 954 H (<450) pg/mL Total Protein 7.6 (6.3-8.2) g/dL Albumin 4.0 (3.5-5.0) g/dL Globulin 3.6 (1.7-4.1) g/dL Albumin/Globulin Ratio 1.1 (1.0-2.8) Lipase 66 D (23-300) U/L Imaging Data CT scan - abdomen/pelvis: Radiologist's Impresson: PROCEDURE: CT ABDOMEN PELVIS W CON INDICATIONS: diverticulitis and bloody stool TECHNIQUE: After the administration of intravenous contrast, axial sections acquired from the lung bases to the pubic symphysis. Coronal and sagittal reformats were performed. For radiation dose reduction, the following was used: automated exposure control, adjustment of mA and/or kV according to patient size. COMPARISON: [facility], CT, CT ABDOMEN PELVIS W CON, 05/20/2025, 0:20. FINDINGS: Image quality: Diagnostic. Lower Chest: No significant findings. ABDOMEN: Liver: No solid mass. Gallbladder: Calcific cholelithiasis without evidence of acute cholecystitis. Biliary ducts: No biliary dilation. Pancreas: Fatty atrophy of the pancreas. Spleen: Size is within normal limits. Adrenal Glands: No adrenal nodules. Kidneys and Ureters: A few small nonobstructive renal stones. Stomach and Bowel: No evidence of obstruction. Numerous colonic diverticula with surrounding phlegm [place] changes throughout the sigmoid colon without free air or organized fluid collection. Moderate wall thickening of the sigmoid colon Peritoneum: No abnormal intraperitoneal fluid. No free air. Ventral Wall: No significant ventral hernia. Abdominal Nodes: No retroperitoneal or mesenteric adenopathy by size criteria. Vessels: Aorta and inferior vena cava are normal in size. PELVIS: Pelvic Organs: Unremarkable. Bladder: No bladder wall thickening, accounting for underdistention. Pelvic Nodes: No enlarged lymph nodes. Miscellaneous: No inguinal hernias are seen. Bones: No aggressive osseous abnormality. IMPRESSION: Acute simple diverticulitis of the sigmoid colon without organized abscess or fluid collection. Cholelithiasis without evidence of acute cholecystitis. Nonobstructive nephrolithiasis. Dictated by: Brian Cintron M.D. on 05/24/2025 at 9:09 Chest x-ray: Radiologist's Impresson: PROCEDURE: XR CHEST 1V INDICATIONS: chest pain TECHNIQUE: One view of the chest was acquired. COMPARISON: [facility], CR, XR CHEST 1V, 05/20/2025, 1:01. FINDINGS: Surgical changes and devices: Resuscitation pads overlie the patient. Lungs and pleura: Low lung volumes. Mild interstitial prominence. No focal consolidation. No pleural effusion. No pneumothorax. Mediastinum: Mediastinal contours appear normal. Heart size is normal. Bones and chest wall: No suspicious bony lesions. Overlying soft tissues appear unremarkable. IMPRESSION: No acute cardiopulmonary abnormality is seen. Dictated by: Brian Cintron M.D. on 05/24/2025 at 9:16 ECG Data Attestation: I personally reviewed and interpreted this ECG as follows: Interpretation: EKGs 1. SVT rate 187 no ischemia EKGs 2. Sinus rhythm with PVC artifact noted EKGs 3. Sinus rhythm PVC rate 102 MN interval 216 QRS [address]-T MDM Narrative Medical decision making narrative: MDM CC: Bloody stool Complicating co-morbidities: Intermittent SVT Data collected from: Patient Medical records reviewed: Recent admission for diverticulitis, anal fissure hemorrhoid Differential considered: Cardiac arrhythmia, SVT AFib a flutter, bleeding diverticula GI bleed Exam documented above, pertinent findings include: Alert 84-year-old male tachycardic abdomen soft nontender Lab Test results independently reviewed as above. Pertinent findings: CBC no leukocytosis no anemia CMP no electrolyte abnormality no MICHELINE Troponin negative BNP 954 Independently reviewed EKG as above SVT rate 180 Repeat EKGs shows sinus rhythm without ischemia Imaging studies independently reviewed: CT abdomen and pelvis show uncomplicated diverticulitis no active bleeding Consultations: 1050 Dr. Samuel updated on patient's symptoms and test results for member's patient. Recommends diltiazem 180 mg long acting follow-up in office. May require ablation if needed Treatments: Vasovagal maneuver and diltiazem Re-evaluations: Patient remains in sinus rhythm he is ambulatory to the restroom without any significant difficulties. Discussion: Patient 84-year-old male presenting today with bloody stool. 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 He has an ongoing case of diverticulitis currently on Augmentin. However today he is found to be in SVT. He continues to have runs of SVT he had them when he was admitted cardiology was consulted. He was not sent home on any medication as he did not have any episodes. Today he is in SVT which quickly converts with a vasovagal maneuver and diltiazem. Cardiology consulted recommends diltiazem and outpatient follow up. Patient's son at bedside reports that he had something similar he had ultimately stop diltiazem cassette lower blood pressure. Discussion with patient and family to check blood pressure regularly. We will start him on a lower dose of 120 due to blood pressure issues can be adjusted needed Discharge Plan Departure Patient Disposition: Home Clinical Impression: SVT (supraventricular tachycardia) Instructions: Paroxysmal Supraventricular Tachycardia Activity Restrictions/Additional Instructions: *You have been diagnosed with SVT, diverticulitis *What to do: At this time you will need to follow up with Cardiology for further evaluation. However he recommended starting on this medication. Please monitor your blood pressure this combined with your other medications may decrease your blood pressure so check her pressure once a day *Continue to take medications as directed Diltiazem 120 mg once daily *Follow up with your primary care provider in 2-3 days or call [phone] Samuel [phone] *Return to ER if you should have dizziness lightheadedness fast heart rate abdominal pain passing [or] any new, worsening or concerning symptoms Prescriptions: New diltiazem HCl [DILT-XR] 120 mg capsule,ext.rel 24h degradable 120 mg PO DAILY Qty: 30 0RF No Action celecoxib [Celebrex] 200 mg capsule 200 mg PO QDAY Qty: 100 3RF Patient Comments: at night psyllium husk [Fiber (psyllium husk)] 0.4 gram capsule 0.4 gram PO DAILY Qty: 90 0RF Patient Comments: last night hydroxyzine HCl 25 mg tablet 12.5 - 25 mg PO TID PRN (Reason: anxiety) Qty: 60 5RF Patient Comments: last night zolpidem 5 mg tablet 5 mg PO BEDTIME Qty: 90 1RF Patient Comments: last night triamterene-hydrochlorothiazid 37.5-25 mg tablet See Rx Instructions .ROUTE .COMPLEX Qty: 90 3RF Dose Instruction: TAKE ONE TABLET BY MOUTH ONCE DAILY Patient Comments: last night Rx Instructions: TAKE ONE TABLET BY MOUTH ONCE DAILY lovastatin 20 mg tablet 20 mg PO DAILY Qty: 90 3RF Patient Comments: last night losartan 50 mg tablet See Rx Instructions .ROUTE .COMPLEX Qty: 90 0RF Dose Instruction: TAKE ONE TABLET BY MOUTH ONCE DAILY Patient Comments: last night Rx Instructions: TAKE ONE TABLET BY MOUTH ONCE DAILY amoxicillin-pot clavulanate 875-125 mg tablet 1 tab PO BID Qty: 14 0RF (DME) ResMEd AirSense 10 See Rx Instructions .Route .MEDSUPPLY Rx Instructions: CPAP Min: 6 Max: 10 DME: [employer] Referrals: Michel Vera DO [Primary Care Provider, Family Practice] Stand Alone Forms: Patient Portal/API
[2025-05-24 09:12] LABS: INR 1.2 (0.9-1.3); Prothrombin Time 13.2 SECONDS (9.4-12.5)
[2025-05-24 09:15] LABS: PTT Partial Thromboplastin Tim 27 SECONDS (25.1-36.5)
[2025-05-24 09:23] LABS: Alanine Aminotransferase 42 IU/L (<50); Albumin 4.0 g/dL (3.5-5.0); Albumin Globulin Ratio 1.1 (1.0-2.8); Alkaline Phosphatase 150 U/L (38-126); Blood Urea Nitrogen 10 mg/dL (9-20); Calcium 9.1 mg/dL (8.4-10.2); Carbon Dioxide 26 mmol/L (22-32); Chloride 102 mmol/L (98-107); Estimated Glomerular Filt Rate > 60 mL/min (>60); Globulin 3.6 g/dL (1.7-4.1); Glucose 136 mg/dL (70-99); HEMOLYSIS < 15 (0-50); Lipase 66 U/L (23-300); Magnesium 2.0 mg/dL (1.6-2.3); Potassium 3.6 mmol/L (3.4-5.1); Sodium 138 mmol/L (137-145); Total Protein 7.6 g/dL (6.3-8.2)
[2025-05-24 09:29] LABS: Hematocrit 45.5 % (41-53); Hemoglobin 15.9 g/dL (13.5-17.5); Lymphocytes Absolute Auto 2000 /uL (1100-4500); Mean Corpuscular HGB Conc 34.9 % (30-36); Mean Corpuscular Hemoglobin 32.5 PG (26-34); Mean Corpuscular Volume 93.1 fL (80-100); Platelet Count 281 X10^3/uL (150-400)
--- NOTE | 2025-05-24 09:30 | PC.NURSE ---
IV placed by another RN
[2025-05-24 09:34] LABS: Add Manual Diff / Slide Review SLIDE REVIEW
[2025-05-24 09:35] LABS: NT-proBNP (BNP-Adult 18+) 954 pg/mL (<450); Troponin I < 0.012 ng/mL (0.01-0.034)
--- NOTE | 2025-05-24 09:53 | PC.NURSE ---
pt states that he had bright red blood per rectum this morning that turned the bowl red stated It was all blood. The pt stated that he is currently being treated for rectal fissure and has a history of hemorrhoids and constipation in the past but today his stool is soft.
[2025-05-24 10:00] LABS: RBC Morphology Normal Morphology
== END 2025-05-24 11:23 | disposition home or self-care (01) ==
PROVIDERS: Emergency Provider Emergency Medicine; PCP Family Medicine
DX: I47.10 Supraventricular tachycardia, unspecified (principal); R42 Dizziness and giddiness; R07.9 Chest pain, unspecified
CPT/HCPCS: 71045; 74177; 80053; 83690; 83735; 83880; 84484; 85025; 85610; 85730; 93005; 96374; 99284; Q9967

== ENCOUNTER → 2025-06-10 13:14 | Outpatient (CLI) | payer MEDICARE, SELFPAY ==
[2025-05-22 16:42] VITALS: PULSE 77; RESP 18; O2SAT 96; BMI 32.9
--- NOTE | 2025-06-10 13:16 | DI.ECHO.S_ITS ---
[facility]+ [facility] : : [address] : : [place] : : [id number] : : Phone: [phone] Echocardiogram Report + + :Name: PJ SHAFER Study Date: 06/10/2025 Height: 67 in : :[facility] ReadingLocation: Weight: 194 lb : : Gender: Male BSA: 2.0 m2 : :: 1940 Age: 84 yrs BP: 148/93 mmHg: :Reason For Study: SVT : :Ordering Physician: MISTY, : :ERICK Performed By: Brennon Finley : :Referring: ERICK JAY : + + Interpretation Summary Normal sinus with frequent PVC's and PAC's. Uncontrolled hypertension. Normal LV size and mildly increased wall thickness; normal wall motion and LV systolic function. EF is 60-65%; stage I diastolic dysfunction. Mild LA enlargement; otherwise normal chamber sizes. Aortic sclerosis without stenosis; otherwise no significant valve abnormalities. No prior echo available for comparison. Procedure: A two-dimensional transthoracic echocardiogram with color flow and Doppler was performed. The study quality was technically good. There is no prior echocardiogram noted for this patient. The patient was in normal sinus rhythm during the exam. The patient had frequent PVCs during the exam. Left Ventricle: The left ventricle is normal in size. Left ventricular wall thickness is mildly increased. There is no ventricular septal defect visualized. The ejection fraction is estimated to be 60-65%. There are no focal wall motion abnormalities. Grade I diastolic dysfunction with normal left atrial pressure. Right Ventricle: The right ventricle is normal in size and function. Atria: The left atrium is mildly dilated. The right atrium is mildly dilated. There is no Doppler evidence for an interatrial shunt. Mitral Valve: There is mild mitral annular calcification. The mitral valve leaflets appear mildly thickened. There is trace mitral regurgitation. Aortic Valve: The aortic valve is trileaflet. The aortic valve is mildly calcified. The aortic valve opens well. No aortic regurgitation is present. Tricuspid Valve: The tricuspid valve leaflets are thin and pliable. There is trace tricuspid regurgitation. Pulmonic Valve: The pulmonic valve is not well seen, but is grossly normal. There is trace pulmonic regurgitation. Great Vessels: The aortic root is normal size. The dimensions of the ascending aorta are normal. The pulmonary artery is not well visualized, but is probably normal size. The inferior vena cava was not well visualized. Pericardium/ Pleura There is no pericardial effusion. There is no pleural effusion. MMode/2D Measurements & Calculations LVIDd: 5.2 cm LVOT diam: 2.2 cm LVIDs: 3.4 cm Ao root diam: 3.5 cm FS: 34.5 % asc Aorta Diam: 3.4 cm EPSS: 0.58 cm IVSd: 1.1 cm LVPWd: 1.1 cm LV ventura. diameter/BSA (cm/m^2): 2.6 LV sys. diameter/BSA (cm/m^2): 1.7 LA A2 area: 19.7 cm2 RA long axis: 5.3 cm LA A4 area: 23.2 cm2 RA area: 18.5 cm2 LA length (vol): 6.5 cm RA vol: 55.3 ml LA vol: 59.4 ml RA : 27.7 ml/m2 LA vol index: 29.8 ml/m2 RVD1 (basal): 3.8 cm RVD2 (mid): 3.0 cm TAPSE: 2.9 cm Doppler Measurements & Calculations Ao V2 max: 150.0 cm/sec LVOT Max Ruben: 106.6 cm/sec Ao V2 mean: 103.3 cm/sec LV V1 max P.5 mmHg Ao max P.0 mmHg LV V1 VTI: 21.1 cm Ao mean P.7 mmHg LEIDY(I,D): 2.6 cm2 Ao V2 VTI: 31.1 cm LEIDY(V,D): 2.8 cm2 sev ratio: 0.68 LEIDY indexed to BSA (cm^2/m^2): 1.3 MV E max ruben: 60.9 cm/sec TR max ruben: 262.9 cm/sec MV A max ruben: 79.6 cm/sec TR max P.6 mmHg MV E/A: 0.76 PA V2 max: 152.6 cm/sec Med Peak E' Ruben: 7.2 cm/sec PA V2 mean: 93.9 cm/sec E/E' med: 8.5 PA mean P.1 mmHg Lat Peak E' Ruben: 8.6 cm/sec PA pr(Accel): 60.2 mmHg E/E' lat: 7.1 E/e' average: 7.8 MV dec time: 0.26 sec SV(LVOT): 81.7 ml Electronically signed by: Flor Rajan M.D. on Reading Physician:06/11/2025 02:55 AM
== END ==
LOC: ECHO 13:15
PROVIDERS: PCP Family Medicine; Referring Provider Family Medicine; Visit Provider Family Medicine
DX: I34.81 Nonrheumatic mitral (valve) annulus calcification (principal); I47.10 Supraventricular tachycardia, unspecified
CPT/HCPCS: 93306

== ENCOUNTER → 2025-06-15 13:30 | Outpatient (CLI) | payer MEDICARE, SELFPAY ==
[2025-05-22 16:42] VITALS: PULSE 77; RESP 18; O2SAT 96; BMI 32.9
== END ==
LOC: CAR 13:31
PROVIDERS: PCP Family Medicine; Referring Provider Family Medicine; Visit Provider Family Medicine
DX: R00.0 Tachycardia, unspecified (principal)
CPT/HCPCS: 93246